=== PATIENT | female | born 2000 | race Two or more races ===

== ENCOUNTER 2024-07-22 09:50 | Outpatient (AMB) | payer OTHER, SELFPAY ==
--- NOTE | 2024-07-22 10:42 | MHC.PC.OV ---
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 Transferring care from Dr Valdovinos([facility]). Medical records have been requested and have received. Cooking Instructor Required: No In House Counsel: Not Required per policy Accompanied by: Self / Same As Patient Allergies No Known Allergies Allergy (Verified 07/25/24 22:55) Medication List - Last Reconciled 07/22/24 by Louisa Felder MD acetaminophen 2,000 mg PO Q6H PRN Tobacco use date assessed: 07/22/24 Dental Screening Dental Screen Date: 07/22/24 Did you have a dental visit in the last 12 months?: Yes Did you have a dental problem in the last 6 months where you did not have access to dental care?: No Was dental information given to patient?: Patient has dentist HPI BLEACHER PULP // Est Care HPI Details 24-year-old lady new to practice, here to establish care with a new provider after pediatrics. She has history of ventricular septal defect, had surgery at in at 1-year-old, has nonrheumatic mitral valve regurgitation, currently being followed by Dr. Jesse Louis at [facility] cardiology. She has generalized anxiety disorder, does not want to start any medications at present time, and declined therapy. 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 Complains of dysmenorrhea, at least a 1-2 days prior to her period . Has been taking Tylenol which has not been helping much. [facility] Medical History Generalized anxiety disorder Easy fatigability Intermittent palpitations Morbid obesity Dysmenorrhea Nonrheumatic mitral valve regurgitation History of ventricular septal defect Surgical History History of heart surgery History of tonsillectomy Family History Other Mental health disorder Social History Housing: House Alcohol intake: never Patient Tobacco Use Status: Never used Tobacco e-Cigarette/Vaping Use: Never Used Second Hand Smoke Exposure: No service: No Current occupational status: unemployed Cognitive needs: No Hearing needs: No Vision needs: Yes (Glasses) Female Reproductive History Menstrual Age of Menarche: 11 Duration of menses: 6-7 days Date of last menstrual period: 07/06/24 control method: none Questionnaire PHQ-9 Over the last 2 weeks, how often have you been bothered by any of the following problems? 1. Little interest or pleasure in doing things: several days 2. Feeling down, depressed, or hopeless: not at all 3. Trouble falling or staying asleep, or sleeping too much: several days 4. Feeling tired or having little energy: several days 5. Poor appetite or overeating: not at all 6. Feeling bad about yourself - or that you are a failure or have let yourself or your family down: several days 7. Trouble concentrating on things, such as reading the newspaper or watching television: not at all 8. Moving or speaking so slowly that other people could have noticed. Or the opposite - being so fidgety or restless that you have been moving around a lot more than usual: not at all 9. Thoughts that you would be better off or of hurting yourself in some way: not at all Total score: 4 Depression Screening Interpretation: Negative Depression Screening Done: Yes 38158 - PHQ-9 Billing: Yes Source: Developed by Drs. Mal Lee, Jil Bhatia, Guevara Cohen and colleagues, with an educational luis from [employer]. Thrive Questionnaire Date Thrive assessed: 07/22/24 I am a: Patient What is your living situation today?: I have a steady place to live Within the past 12 months, did the food you bought not last and you didn't have the money to get more?: Never true Within the past 12 months, did you worry whether your food would run out before you got money to buy more?: Never true Do you have trouble paying for medicines?: No Do you have trouble getting transportation to medical appointments?: No Do you have trouble paying your heating and electricity bill?: No Do you have trouble taking care of your child, family member or friend?: No Do you have trouble with day-to-day activities such as bathing, preparing meals, shopping, managing finances, etc.?: No Are you currently unemployed and looking for a job?: I choose not to answer this question Are you interested in more education?: No Please select the resources that you would like help with: None Currently or been in a relationship where the following occur: No concerns reported THRIVE Score: 0 AUDIT C Alcohol Use Questionnaire (AUDIT-C) 1. How often do you have a drink containing alcohol?: 2-4 times a month 2. How many drinks containing alcohol do you have on a typical day when you are drinking?: 1 or 2 3. How often do you have six or more drinks on one occasion?: Less than monthly Total Score: 3 CORBY-7 AMB Questionnaire CORBY-7 Date CORBY - 7 assessed: 07/22/24 Feeling nervous, anxious, or on edge: 2 = More than half the days Not being able to stop or control worryin = More than half the days Worrying too much about different things: 2 = More than half the days Trouble relaxin = More than half the days Being so restless that it is hard to sit still: 1 = Several days Becoming easily annoyed or irritable: 2 = More than half the days Feeling afraid as if something awful might happen: 1 = Several days Total CORBY-7 score (0-4 normal; 5-9 mild; 10-14 moderate; 15-21 severe): 12 Source: Developed by Drs. Mal Lee, Jil Bahtia, Guevara Cohen and colleagues, with an educational luis from [employer]. CORBY-7 Assessment Billing CORBY-7 Assessment Tool: CORBY-7 Assessment 21800 (declined medication or referral for therapy) Review of Systems Const Denies body aches, Denies fatigue, Denies fever(s), Denies headache(s) and Denies weakness Eyes Denies change in vision, Denies eye discharge and Denies itchy eyes ENT Denies dizziness, Denies headache(s), Denies nasal congestion, Denies nasal discharge and Denies sore throat Card Denies chest pain, Denies lightheadedness, Denies palpitations and Denies dyspnea Resp Denies chest congestion, Denies cough, Denies dyspnea and Denies wheezing GI Denies abdominal pain, Denies change in bowel habits and Denies heartburn Denies hematuria, Denies urinary frequency, Denies dysuria and Denies urinary urgency Musc Reports no additional complaints Skin/Breast Denies breast pain, Denies breast mass, Denies lesions and Denies rash Neuro Denies dizziness, Denies headache(s) and Denies weakness Psych Reports as per HPI Endo Denies fatigue, Denies polydipsia, Denies polyuria and Denies palpitations Zana/Lymph Denies easy bruising Aller/Immun Denies itchy eyes, Denies seasonal rhinorrhea and Denies wheezing Physical exam (Primary Care) Vital Signs: Last Vital Signs Pulse 105 H 07/22/24 10:55 BP 110/72 07/22/24 10:55 Pulse Ox 96 07/22/24 10:55 Oxygen Delivery Method Room Air 07/22/24 10:55 BMI result Body Mass Index 54.6 Tobacco/Smoking Status: Tobacco use Status Tobacco use date assessed 07/22/24 07/22/24 10:45 Patient Tobacco Use Status Never used Tobacco 07/22/24 10:45 e-Cigarette/Vaping Use Never Used 07/22/24 10:45 PHQ-9: PHQ-9 Score PHQ-9: Total score 4 07/22/24 11:35 Depression Screening Interpretation: Negative Thrive Assessment: Date of Thrive Assessment Date Thrive assessed 07/22/24 07/22/24 10:45 Currently or been in a relationship where the following occur: No concerns reported Const General: comfortable, no acute distress and alert Nutritional Appearance: obese morbidly obese Orientation/consciousness: patient oriented x3 HENMT Ears: external ears normal, TM's normal bilaterally and EAC's normal General nose exam: Normal external nose present and No nasal discharge present Face and sinus: Yes face symmetric Mouth: Normal oral and palatal mucosa present, oropharynx normal and moist mucous membranes Eyes General: appearance normal, both eyes and all related structures Conjunctivae: conjunctivae normal Sclerae: sclerae normal Pupils: Equal, round and reactive pupils present EOM: EOMs intact bilaterally Neck Neck: Yes full ROM, Yes no lymphadenopathy and Yes supple Resp Effort & Inspection: normal respiratory effort and able to speak in complete sentences Auscultation: clear to auscultation bilaterally Cardio Rate: regular rate Rhythm: regular rhythm Heart sounds: S1 normal heart sound present and S2 normal heart sound present GI Palpation (GI): Soft to palpation, nontender and no masses Auscultation: normal bowel sounds Back/Spine/Pelvis Back: No back tenderness Skin General skin exam: no rashes or lesions noted Neuro General: patient oriented x3, gait normal, tone normal, moves all extremities, Normal light touch and pain sensation and no focal motor deficits Cranial nerves: Yes CN's II-XII intact bilaterally and Yes Equal, round and reactive pupils present Cognition (Neuro): normal cognition Extrem General: Yes full ROM, Yes no joint enlargement, Yes no clubbing, cyanosis or edema and Yes no calf tenderness Psych Appearance: grossly normal and well kempt Mental Status: mental status grossly normal Speech and movement: Normal speech and movement present Affect: normal affect Attitude: cooperative Thought process: Normal thought process present Thought content: Normal thought content present, suicidality and no homicidality Office Procedures Flu Questionnaire Does the patient have a severe egg allergy?: No Does the patient have severe life threatening allergies?: No Does the patient have a fever or illness today?: No Has the patient ever had Guillain-Chester Syndrome?: No Has the patient ever had any past reaction to a flu shot?: No Immunizations Fluarix Triv [id number] (PF) 45 mcg (15 mcg x 3)/0.5 mL IM syringe Performing Provider: Louisa Felder MD [place] [facility] Administered by: Cesario Rod CMA on 07/22/24 11:33 Dose Route Admin Location Dispensed Lot Number Expiration Date [facility] Tank Cleaner 0.5 mL IM Right Deltoid 0.5 mL [id number] 04/04/25 [id number] [employer] VIS Given Date VIS Provided VIS Publication Date 07/22/24 Single Vaccine 21 Eligibility Eligibility Date Funding Source Not [facility] Eligible 07/22/24 Private Coding Level of Care Code New Pt Level 4 (91556) Complex EM visit Add On G2211 Diagnoses Dysmenorrhea N94.6 Nonrheumatic mitral valve regurgitation I34.0 Morbid obesity E66.01 Intermittent palpitations R00.2 Easy fatigability R53.83 Generalized anxiety disorder F41.1 Flu vaccine need Z23 Additional Codes CORBY-7 Assessment Billing - CORBY-7 Assessment Tool: CORBY-7 Assessment 80170 ([id number]) Assessment & Plan Assessment & Plan (1) Dysmenorrhea: Code(s): N94.6 - Dysmenorrhea, unspecified Category: Medical Plan: Prescription sent for naproxen 500 mg per tablet to take 1 tablet twice a day with meals as needed for dysmenorrhea, take medicine at onset of menstrual cramps, alternate with Tylenol 1-2 tablets every 8 hours as needed for pain. Referred to [address] for further evaluation management and for her routine Pap and pelvic exam (2) Nonrheumatic mitral valve regurgitation: Comment: Sees Dr. Jesse Louis cardiology at [facility] Code(s): I34.0 - Nonrheumatic mitral (valve) insufficiency Category: Medical Plan: Followed by cardiology at [facility] (3) Morbid obesity: Code(s): E66.01 - Morbid (severe) obesity due to excess calories Category: Medical Plan: Y Recommended focusing on improving health instead of dieting. Mediterranean diet is a healthy diet that helps, limit food high in fat, sugar, and calories. Eat slowly, pay attention to portion sizes, plan your meals ahead of time, start regular physical activity, at least 150 minutes of moderate intensity exercise, or 90 minutes per week of vigorous exercise. Keeping a food diary, tracking what you eat and your physical activity can help assess what improvements you can make. There are many health problems associated with being overweight/obese, so it is important to improve your diet and exercise. There are medications and surgical options available, but Lifestyle changes are the 1st step. (4) Intermittent palpitations: Code(s): R00.2 - Palpitations Category: Medical Plan: CBC and TSH with free T4 ordered (5) Easy fatigability: Code(s): R53.83 - Other fatigue Category: Medical Plan: Ordered CBC and TSH with free T4 (6) Generalized anxiety disorder: Code(s): F41.1 - Generalized anxiety disorder Category: Medical Plan: Declines referral for counseling or starting any medication at present time, patient has been controlling her anxiety attacks with behavioral techniques (7) Flu vaccine need: Code(s): Z23 - Encounter for immunization Plan: Flu vaccine given today Orders: Orders Alanine Aminotransferase 07/22/24 E66. - Morbid (severe) obesity due to excess calories, F41.1 - Generalized anxiety disorder, I34.0 - Nonrheumatic mitral (valve) insufficiency, N94.6 - Dysmenorrhea, unspecified, R00.2 - Palpitations, R53.83 - Other fatigue Aspartate Amino Transferase 07/22/24 E66. - Morbid (severe) obesity due to excess calories, F41.1 - Generalized anxiety disorder, I34.0 - Nonrheumatic mitral (valve) insufficiency, N94.6 - Dysmenorrhea, unspecified, R00.2 - Palpitations, R53.83 - Other fatigue Basic Metabolic Panel Fasting 07/22/246. - Morbid (severe) obesity due to excess calories, F41.1 - Generalized anxiety disorder, I34.0 - Nonrheumatic mitral (valve) insufficiency, N94.6 - Dysmenorrhea, unspecified, R00.2 - Palpitations, R53.83 - Other fatigue Lipid Panel 07/22/24 E66. - Morbid (severe) obesity due to excess calories, F41.1 - Generalized anxiety disorder, I34.0 - Nonrheumatic mitral (valve) insufficiency, N94.6 - Dysmenorrhea, unspecified, R00.2 - Palpitations, R53.83 - Other fatigue Vitamin D 25-OH Total 07/22/24 E66. - Morbid (severe) obesity due to excess calories, F41.1 - Generalized anxiety disorder, I34.0 - Nonrheumatic mitral (valve) insufficiency, N94.6 - Dysmenorrhea, unspecified, R00.2 - Palpitations, R53.83 - Other fatigue Influenza [id number] Immunization 07/22/24 Z23 - Encounter for immunization TSH reflex Free T4 07/22/24 E66. - Morbid (severe) obesity due to excess calories, F41.1 - Generalized anxiety disorder, I34.0 - Nonrheumatic mitral (valve) insufficiency, N94.6 - Dysmenorrhea, unspecified, R00.2 - Palpitations, R53.83 - Other fatigue Complete Blood Count Auto Diff 07/22/24 E66.01 - Morbid (severe) obesity due to excess calories, F41.1 - Generalized anxiety disorder, I34.0 - Nonrheumatic mitral (valve) insufficiency, N94.6 - Dysmenorrhea, unspecified, R00.2 - Palpitations, R53.83 - Other fatigue Referrals [facility] Referral N94.6 - Dysmenorrhea, unspecified, Z12.4 - Encounter for screening for malignant neoplasm of cervix Medications: New naproxen 500 mg PO BID PRN 30 tabs 1RF menstrual cramps
[2024-07-22 10:55] VITALS: BP 110/72; PULSE 105; O2SAT 96; BMI 54.6
== END 2024-07-22 15:40 | disposition home or self-care (01) ==
PROVIDERS: Visit Provider Internal Medicine
DX: N94.6 Dysmenorrhea, unspecified (principal); I34.0 Nonrheumatic mitral (valve) insufficiency; E66.813 Obesity, class 3; Z68.43 Body mass index [BMI] 50.0-59.9, adult; R00.2 Palpitations; R53.83 Other fatigue; F41.1 Generalized anxiety disorder

== ENCOUNTER → 2024-07-22 09:50 | Outpatient (BNVA) | payer OTHER, SELFPAY | PROVIDERS: Visit Provider Internal Medicine ==

== ENCOUNTER 2024-07-22 11:37 | Outpatient (REF) | payer OTHER, SELFPAY ==
[2024-07-22 13:19] LABS: MANUAL DIFF FLAG NO
[2024-07-22 13:36] LABS: Basophils Percent Auto 0.3 % (0-2); Eosinophils Absolute Auto 0.1 X10*3/uL (0.0-0.4); Eosinophils Percent Auto 0.9 % (0-4); Hematocrit 40.9 % (37.0-47.0); Imm Gran Abs Auto 0.04 X10*3/uL (0.00-0.03); Imm Gran Pct Auto 0.4 % (0.0-0.4); Lymphocytes Absolute Auto 1.3 X10*3/uL (1.2-4.9); Mean Corpuscular HGB Conc 29.3 g/dl (31.0-35.0); Mean Corpuscular Hemoglobin 21.5 pg (27.0-33.0); Mean Corpuscular Volume 73.3 fL (80.0-98.0); Mean Platelet Volume 10.6 fL (9.4-12.3); Monocytes Absolute Auto 0.5 X10*3/uL (0.1-1.2); Neutrophils Absolute Auto 7.9 x10*3/uL (2.0-8.3); Neutrophils Percent Auto 80.4 % (45-73); Platelet Count 323 X10*3/uL (160-400); Red Blood Count 5.58 X10*6/uL (4.20-5.50); Red Cell Distribution Width 17.2 % (11.0-16.0); White Blood Count 9.8 X10*3/uL (4.8-10.8)
[2024-07-22 14:07] LABS: Alanine Aminotransferase 18 U/L (0-31); Anion Gap 13 (12-20); Aspartate Amino Transferase 17 U/L (5-31); Blood Urea Nitrogen 14 mg/dL (9-16); Calcium 9.6 mg/dL (8.4-10.2); Carbon Dioxide 21 mmol/L (22-29); Chloride 109 mmol/L (96-108); Cholesterol 167 mg/dL (<200); Estimated Glomerular Filt Rate > 60; Glucose Fasting 99 mg/dL (60-99); HDL Cholesterol 53 mg/dL (>40); LDL Cholesterol Calculated 101 mg/dL (<100); Potassium 4.6 mmol/L (3.3-5.1); Sodium 138 mmol/L (135-145); Triglycerides 67 mg/dL (<150)
[2024-07-22 14:22] LABS: TSH reflex Free T4 1.48 uIU/mL (0.32-4.0); Vitamin D 25-OH Total 12.4 ng/mL (>30)
== END 2024-07-22 11:38 | disposition home or self-care (01) ==
LOC: HO.HMGCLDS 11:37
PROVIDERS: PCP Internal Medicine; Visit Provider Internal Medicine
DX: N94.6 Dysmenorrhea, unspecified (principal); I34.0 Nonrheumatic mitral (valve) insufficiency; E66.01 Morbid (severe) obesity due to excess calories; Z68.43 Body mass index [BMI] 50.0-59.9, adult; R00.2 Palpitations; R53.83 Other fatigue; F41.1 Generalized anxiety disorder; Z23 Encounter for immunization
CPT/HCPCS: 36415; 80048; 80061; 82306; 84443; 84450; 84460; 85025; 90471; 90656; 96127; 99202

== ENCOUNTER 2024-11-25 12:34 | Outpatient (AMB) | payer OTHER, SELFPAY ==
[2024-11-25 12:36] VITALS: BP 120/90; PULSE 88; TEMP 36.9; O2SAT 95; BMI 53.1
--- NOTE | 2024-11-25 12:36 | A.OFFPC_ITS ---
Vital Signs 11/25/24 12:36 Height 4 ft 11 in Weight 263 lb BMI 53.1 BP 120/90 H Blood Pressure Location Rt brachial Position Sitting Pulse 88 Pulse Source Pulse Oximeter Temp 98.5 F Temp Source Oral Pulse Oximetry (%) 95 Oxygen Delivery Method Room Air Intake Visit Reasons: ED f/u Intake Note: Pt is here today to f/u for SOB Allergies No Known Allergies Allergy (Verified 11/28/24 16:21) Medication List - Last Reconciled 11/28/24 by Louisa Felder MD acetaminophen 2,000 mg PO Q6H PRN albuterol sulfate 90 mcg/actuation (Ventolin HFA) inhalation ferrous sulfate mg PO Q OTHER DAY naproxen 500 mg PO BID PRN Tobacco use date assessed: 11/25/24 Dental Screening Dental Screen Date: 11/25/24 Did you have a dental visit in the last 12 months?: Yes Did you have a dental problem in the last 6 months where you did not have access to dental care?: No Was dental information given to patient?: Patient has dentist HPI ED f/u HPI Details 24-year-old lady with history of ventri cular septal defects , 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 Patient was discharged on albuterol inhaler, which she states she has not really been needing to use anymore. At present patient states that she has been feeling better, with no complaints of shortness of breath or cough. Has not been needing to use her albuterol inhaler . During her admission she was noted to have iron-deficiency anemia with hemoglobin hematocrit at 11.2/38, and iron level at 23. She was started on iron supplements. Denies any unusual bleeding. [facility] Medical History (Updated 11/28/24 @ 16:32 by Louisa Felder MD) Congenital heart disease Iron deficiency anemia Generalized anxiety disorder Easy fatigability Intermittent palpitations Morbid obesity Dysmenorrhea Nonrheumatic mitral valve regurgitation History of ventricular septal defect Surgical History History of heart surgery History of tonsillectomy Family History Other Mental health disorder Social History Housing: House Alcohol intake: never Patient Tobacco Use Status: Never used Tobacco e-Cigarette/Vaping Use: Never Used Second Hand Smoke Exposure: No service: No Current occupational status: employed Cognitive needs: No Hearing needs: No Vision needs: Yes (Glasses) Female Reproductive History Menstrual Age of Menarche: 11 Questionnaire PHQ-9 Over the last 2 weeks, how often have you been bothered by any of the following problems? 1. Little interest or pleasure in doing things: not at all 2. Feeling down, depressed, or hopeless: not at all 3. Trouble falling or staying asleep, or sleeping too much: not at all 4. Feeling tired or having little energy: not at all 5. Poor appetite or overeating: not at all 6. Feeling bad about yourself - or that you are a failure or have let yourself or your family down: not at all 7. Trouble concentrating on things, such as reading the newspaper or watching television: not at all 8. Moving or speaking so slowly that other people could have noticed. Or the opposite - being so fidgety or restless that you have been moving around a lot more than usual: not at all 9. Thoughts that you would be better off or of hurting yourself in some way: not at all Total score: 0 Depression Screening Interpretation: Negative Depression Screening Done: Yes 58993 - PHQ-9 Billing: Yes Source: Developed by Drs. Mal Lee, Jil Bhatia, Guevara Cohen and colleagues, with an educational luis from [employer]. Thrive Questionnaire Date Thrive assessed: 11/25/24 I am a: Patient What is your living situation today?: I have a steady place to live Within the past 12 months, did the food you bought not last and you didn't have the money to get more?: Never true Within the past 12 months, did you worry whether your food would run out before you got money to buy more?: Never true Do you have trouble paying for medicines?: No Do you have trouble getting transportation to medical appointments?: No Do you have trouble paying your heating and electricity bill?: No Do you have trouble taking care of your child, family member or friend?: No Do you have trouble with day-to-day activities such as bathing, preparing meals, shopping, managing finances, etc.?: No Are you currently unemployed and looking for a job?: I choose not to answer this question Are you interested in more education?: No Please select the resources that you would like help with: None Currently or been in a relationship where the following occur: No concerns reported THRIVE Score: 0 AUDIT C Alcohol Use Questionnaire (AUDIT-C) 2. How many drinks containing alcohol do you have on a typical day when you are drinking?: 1 or 2 3. How often do you have six or more drinks on one occasion?: Never Total Score: 0 CORBY-7 AMB Questionnaire CORBY-7 Date CORBY - 7 assessed: 07/22/24 Source: Developed by Drs. Mal Lee, Jil Bhatia, Guevara Cohen and colleagues, with an educational luis from [employer]. Review of Systems Const Denies body aches, Denies fatigue, Denies fever(s), Denies headache(s) and Denies weakness Eyes Denies change in vision ENT Denies dizziness, Denies headache(s), Denies nasal congestion, Denies nasal discharge and Denies sore throat Card Denies chest pain, Denies lightheadedness, Denies palpitations and Denies dyspnea Resp Denies chest congestion, Denies cough, Denies dyspnea and Denies wheezing GI Denies abdominal pain, Denies change in bowel habits and Denies heartburn Denies hematuria, Denies urinary frequency, Denies dysuria and Denies urinary urgency Musc Reports no additional complaints Neuro Denies dizziness, Denies headache(s) and Denies weakness Endo Denies fatigue, Denies polydipsia, Denies polyuria and Denies palpitations Zana/Lymph Denies easy bruising Aller/Immun Denies seasonal rhinorrhea and Denies wheezing Physical exam (Primary Care) Vital Signs: Last Vital Signs Temp 98.5 F 11/25/24 12:36 Pulse 88 11/25/24 12:36 BP 120/90 H 11/25/24 12:36 Pulse Ox 95 11/25/24 12:36 Oxygen Delivery Method Room Air 11/25/24 12:36 BMI result Body Mass Index 53.1 Tobacco/Smoking Status: Tobacco use Status Tobacco use date assessed 11/25/24 11/25/24 12:39 Patient Tobacco Use Status Never used Tobacco 11/25/24 12:37 e-Cigarette/Vaping Use Never Used 11/25/24 12:37 PHQ-9: PHQ-9 Score PHQ-9: Total score 0 11/25/24 13:08 Depression Screening Interpretation: Negative Thrive Assessment: Date of Thrive Assessment Date Thrive assessed 11/25/24 11/25/24 12:37 Currently or been in a relationship where the following occur: No concerns reported Const General: comfortable, no acute distress and alert Nutritional Appearance: obese morbidly obese Orientation/consciousness: patient oriented x3 HENMT Ears: external ears normal, TM's normal bilaterally and EAC's normal General nose exam: Normal external nose present and No nasal discharge present Face and sinus: Yes face symmetric Mouth: Normal oral and palatal mucosa present, oropharynx normal and moist mucous membranes Eyes General: appearance normal, both eyes and all related structures Conjunctivae: conjunctivae normal Sclerae: sclerae normal Pupils: Equal, round and reactive pupils present EOM: EOMs intact bilaterally Neck Other: Short neck Neck: Yes full ROM, Yes no lymphadenopathy and Yes supple Resp Effort & Inspection: normal respiratory effort and able to speak in complete se ntences Auscultation: clear to auscultation bilaterally Cardio Rate: regular rate Rhythm: regular rhythm Heart sounds: S1 normal heart sound present and S2 normal heart sound present GI Palpation (GI): Soft to palpation, nontender and no masses Auscultation: normal bowel sounds Back/Spine/Pelvis Back: No back tenderness Skin General skin exam: no rashes or lesions noted Neuro General: patient oriented x3, gait normal, tone normal, moves all extremities, N ormal light touch and pain sensation and no focal motor deficits Cranial nerves: Yes CN's II-XII intact bilaterally and Yes Equal, round and reactive pupils present Cognition (Neuro): normal cognition Extrem General: Yes full ROM, Yes no joint enlargement, Yes no clubbing, cyanosis or edema and Yes no calf tenderness Psych Appearance: grossly normal and well kempt Mental Status: mental status grossly normal Speech and movement: Normal speech and movement present Affect: normal affect Attitude: cooperative Thought process: Normal thought process present Thought content: Normal thought content present Coding Level of Care Code Est Pt Level 4 (14284) Diagnoses Iron deficiency anemia, unspecified iron deficiency anemia type D50.9 Iron deficiency anemia type: unspecified iron deficiency History of RSV infection Z86.19 Congenital heart disease Q24.9 Additional Codes PHQ-9 - 59026 - PHQ-9 Billing: Yes ([id number]) Assessment & Plan Assessment & Plan (1) Iron deficiency anemia: Code(s): D50.9 - Iron deficiency anemia, unspecified Category: Medical Qualifiers: Iron deficiency anemia type: unspecified iron deficiency Qualified Code(s): D50.9 - Iron deficiency anemia, unspecified Plan: Continue taking ferrous sulfate 325 mg taken 1 tablet every other day. Repeat CBC and iron profile in 3 months, lab ordered (2) History of RSV infection: Code(s): Z86.19 - Personal history of other infectious and parasitic diseases Category: Medical Plan: Feeling better, no complaints of any cough or wheezing , rarely needing to use her albuterol inhaler (3) Congenital heart disease: Code(s): Q24.9 - Congenital malformation of heart, unspecified Category: Medical Plan: Currently followed by [facility] cardiology, patient states she already scheduled an appointment Orders: Orders Complete Blood Count Auto Diff 3 Months D50.9 - Iron deficiency anemia, unspecified IRON PROFILE 3 Months D50.9 - Iron deficiency anemia, unspecified
--- OUTSIDE RECORDS SUMMARY | 2024-11-25 13:28 | XMS_ITS | Continuity of Care Document ---
Author Organization [facility] Address [address] [place] [id number] Care Team Providers Care Contact And Service Clerks Supervisor Name Role Phone Aruna DUPREE, Masoud Ford Primary Care Physician Encounter [facility] [place] Date(s): 10/13/24 - 11/12/24 [facility] [address] [place] [id number] Encounter Type: Triage Allergies, Adverse Reactions, Alerts No Known Allergies Medications ferrous sulfate 325 mg oral enteric coated tablet 325 mg, By Mouth, Every other day, If experiencing constipation try OTC laxative and stool softener, # 30 capsule, Refills 2, Tot. Refills 2, Maintenance, 10/27/24 1:07:00 PM EST, Route to Pharmacy Electronically, [facility], Partial fill upon patient request if the prescription is fora schedule II opioid drug., 150, cm, 10/27/24 8:32:00 EST, Height, 118, kg, 10/25/24 20:23:00 EST, Dry Weight Start Date: 10/27/24 Status: Ordered Quantity: 30.0 Unit: capsule Repeat number: 3 Flonase Allergy Relief 50 mcg/inh nasal spray 1 sprays = 50 mcg, Nares, Both, 2 times a day, Maintenance, 10/25/24 4:20:00 PM EST, Partial fill upon patient request if the prescription is for a schedule II opioid drug. Start Date: 10/25/24 Status: Ordered Repeat number: 1 MiraLax oral powder for reconstitution = 17 Gm, By Mouth, Daily, dissolve in 4 to 8 oz of beverage, # 510 Gm, 0 Refills, Acute 10/27/25 1:17:00 PM EST, 10/27/24 1:16:00 PM EST, REC Powder, [facility], Partial fill upon patientrequest if the prescription is for a schedule II opioid drug., 17 Gm By Mouth Daily,Instr:dissolve in 4 to 8 oz of beverage, 150, cm, 10/27/24 8:32:00 EST, Height, 118, kg, 10/25/24 20:23:00 EST, DryWeight Start Date: 10/27/24 Stop Date: 10/27/25 Status: Ordered Quantity: 510.0 Unit: g Repeat number: 1 naproxen 500 mg oral tablet 1 tablet = 500 mg, By Mouth, 2 times a day, PRN Cramps, Maintenance, 10/25/24 4:21:00 PM EST, Partial fill upon patient request if the prescription is for a schedule II opioid drug. Start Date: 10/25/24 Status: Ordered Repeat number: 1 senna 187 mg oral tablet 1 tablet = 8.6 mg, By Mouth, 2 times a day, PRN Constipation, for 30 days, # 60 tablet, 0 Refills, Acute 11/26/24 1:16:00 PM EST, 10/27/24 1:16:00 PM EST, Tablet, [facility], Partial fillupon patient request if the prescription is for a schedule II opioid drug., 150, cm, 10/27/24 8:32:00 EST, Height, 118, kg, 10/25/24 20:23:00 EST, Dry Weight Start Date: 10/27/24 Stop Date: 11/26/24 Status: Ordered Quantity: 60.0 Unit: tablet Repeat number: 1 Ventolin 90 mcg Inhaler 2, puffs, Inhalation, Every 4 hours, PRN, Maintenance, 10/25/24 4:20:00 PM EST Start Date: 10/25/24 Status: Ordered Repeat number: 1 Problem List Condition Confirmation Course Effective Dates Status Health St atus Informant Coarctation Confirmed Stable Active Complex sleep apnea syndrome Confirmed Active Obstructive sleep apnea hypopnea, severe Confirmed Active Severe obesity Confirmed Active VSD - Closure of ventricular septal defect Confirmed Active Social History Social History Type Response Smoking Status Never (less than 100 in lifetime) entered on: 10/25/24 Sex Sex Representation Female (finding) Patient Care team information Care Team Personnel Name: Masoud Valdovinos MD Position: [facility] Physician - Pediatrics Member Role: PCP Address: [address] [place] [address] Telecom: Name: Yary Simms MD Position: [facility] Physician - Pediatrics Member Role: [employer] Consult[employer] Physician Care Team Related Persons Name: SARAN LEO Name: RAVEN GIBSON Name: RAVEN ALONSO Insurance Providers Guarantor name: BAKARI Health Plan Information #: 1 Payer: [employer] Member Number: NA Policy Number: NA Group Number: NA
--- OUTSIDE RECORDS SUMMARY | 2024-11-25 13:28 | XMS_ITS | Continuity of Care Document ---
Author Organization [facility] Address [address] [place] [id number] Care Team Providers Care Public Health Worker Name Role Phone Bradford DUPREE, Louisa Farrar Primary Care Phys[id number] Date(s[facility] 10/25/24 - 10/27/[address] [address] Discharge Disposition: A-D/C Home Attending Physician: Gurinder Valentine MD Admitting Physician: Obi Talamantes MD Referring Physician: Not on Staff, Referring MD Encounter Type: Disch IP Allergies, Adverse Reactions, Alerts No Known Allergies Medications ferrous sulfate 325 mg oral enteric coated tablet 325 mg, By Mouth, Every other day, If experiencing constipation try OTC laxative and stool softener, # 30 capsule, Refills 2, Tot. Refills 2, Maintenance, 10/27/24 1:07:00 PM EST, Route to Pharmacy Electronically, [facility], Partial fill upon patient [...] EST, 10/27/24 1:16:00 PM EST, REC Powder, [facility], Partial fill upon patientrequest [...] PM EST, 10/27/24 1:16:00 PM EST, Tablet, [facility], Partial fillupon patient request if the [...] Closure of ventricular septal defect Confirmed Active Results Radiology Reports * Exam Date Time Procedure Performing Provider Status 10/25/24 12:27 PM Chest 2 Views Frontal and Lat Lizett Quinones; Susan (Verified) Notes: (Chest 2 Views Frontal and Lat) Reason For Exam: Chest Pain;Other: RESULT: Chest 2 Views Frontal and Lat PA and lateral chest x-ray dated October 25, 2024. No prior studies are available. HISTORY: Chest pain. FINDINGS: The cardiac silhouette is at the upper limits of normal for size. There are 2 metallic artifact noted overlying the heart. These could represent ventricular septal closure devices. Mild pulmonary vascular congestion and some interstitial thickening is noted bilaterally. No airspace consolidation or pleural effusion is appreciated. There is evidence of old healed fifth and sixth rib fractures. IMPRESSION: Findings are consistent with a volume overload/mild congestive heart failure pattern. Examination 88880. Thank you for allowing me to participate in the care of this patient. WSN: [id number] Ordering Physician: Fabián Rand Dictated By: Victor Hugo Stafford MD Dictated Date/Time: 10/25/24 12:33 p Reviewed By: Victor Hugo Stafford MD Signed By: Victor Hugo Stafford MD Signed Date/Time: 10/25/24 12:33 pm Transcribed By: ARELI Transcribed Date/Time: 10/25/24 12:33 pm Vital Signs Most recent to oldest [Reference Range]: 1 2 3 Height 150 cm (10/27/24 8:32 AM) 150 cm (10/27/24 1:21 AM) 150 cm (10/26/24 7:50 PM) Weight 119.8 kg (10/27/24 5:15 AM) 119.4 kg (10/26/24 5:48 AM) 119.4 kg (10/25/24 8:58 PM) Oxygen Saturation [94-100 %] 96 % (10/27/24 8:32 AM) 94 % (10/27/24 1:21 AM) 92 % *L* (10/26/24 7:50 PM) Pulse Rate [55-90 bpm] 93 bpm *H* (10/27/24 8:32 AM) 85 bpm (10/27/24 1:21 AM) 87 bpm (10/26/24 7:50 PM) Body Mass Index [18.5-24.99 kg/m2] 53.07 kg/m2 *>HHI* (10/25/24 8:58 PM) 53.07 kg/m2 *>HHI* (10/25/24 7:45 PM) 52.44 kg/m2 *>HHI* (10/25/24 11:21 AM) Blood Pressure [90-138/55-84 mm Hg] 135/108mm Hg (10/27/24 8:32 AM) 135/102mm Hg (10/27/24 1:21 AM) 137/100mm Hg (10/26/24 7:50 PM) Respiratory Rate [16-30 br/min] 20 br/min (10/27/24 8:32 AM) 20 br/min (10/27/24 1:21 AM) 24 br/min (10/26/24 7:50 PM) Temperature [96.8-100.4 DegF] 98.1 DegF (10/27/24 8:32 AM) 97.5 DegF (10/27/24 1:21 AM) 97.8 DegF (10/26/24 7:50 PM) Mode of Delivery (Oxygen) Room air (10/27/24 8:32 AM) Room air (10/27/24 1:21 AM) Room air (10/26/24 7:50 PM) Blood pressure sites Arm, left (10/27/24 8:32 AM) Arm, left (10/27/24 1:21 AM) Arm, left (10/26/24 7:50 PM) Temperature Route Oral (10/27/24 8:32 AM) Temporal (10/27/24 1:21 AM) Temporal (10/26/24 7:50 PM) Dry Weight 118 kg (10/25/24 7:45 PM) 118 kg (10/25/24 11:21 AM) Weight Obtained Via Bed scale (10/27/24 5:15 AM) Bed scale (10/26/24 5:48 AM) Bed scale (10/25/24 8:58 PM) Dry Weight Obtained Via Patient/family stated (10/25/24 11:21 AM) Social History Social History Type Response Smoking Status Never (less than 100 in lifetime) entered on: 10/25/24 Sex Sex Representation Female (finding) Admission evaluation note * Trent Arias MD: MODIFY Trent Arias MD: MODIFY Event Display: Admission Note Authored Date: [id number] Patient: ??KUSHAL LIN ? Age:??24 Years?Sex:??Female?:??2000?? 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 ?? Kushal reports cough that started 4 days ago. The cough is described as dry without phlegm production or associated fevers. Afterwards, she developed dyspnea that is mainly on exertion and when lying flat. Se also reports??sore throat??and rhinorrhea.??She denied any fevers, chills or rigors. She also had diarrhea without abdominal pain. ??She did develop??some pleuritic chest pain because of the recurrent coughing that was localized to the right side of the chest. ??She went to urgent care yesterday and she was told that she has an enlarged heart??and was started on prednisone and doxycycline. ??She last saw her senior data quality analyst last year and has an appointment next December.? Upon initial evaluation, she was noted to be hypertensive up to 150s/100.?? Heart rate was 90.??She was afebrile and saturating well on room air.?? EKG revealed repolarization abnormality with severe TWI and PAC. Laboratory workup revealed a microcytic anemia on the CBC without leukocytosis.?? BMP was unremarkable.?? NT proBNP was elevated up to 3000.?? She tested positive for RSV.?? Chest x-ray revealed cardiomegaly with reticular interstitial markings bilaterally. Review of Systems General:??Denies fevers, chills, and recent unintentional??changes in weight. Cardiovascular:??Denies any chest pain or palpitations. Pulmonary:??She endorses??shortness of breath and cough. GI:??Denies any abdominal pain, nausea, vomiting, diarrhea or constipation. :??Denies any urinary frequency,??urgency??and dysuria. Objective Vital Signs?? Temperature: 98.4 DegF (10/25/24 11:21:00) Temperature Route: Oral (10/25/24 11:21:00) Pulse Rate:??91 bpm??High (10/25/24:21:00) Respiratory Rate: 18 br/min (10/25/24:21:) Systolic Blood Pressure:??151 mm Hg??High (10/25/24 11:21:00) Diastolic Blood Pressure:??102 mm Hg??High (10/25/24 11:21:00) Blood pressure sites: Arm, left (10/25/24 11:21:00) Mean Arterial Pressure: 118 mm Hg (10/25/24 11:21:00) Pulse Pressure: 49 mm Hg (10/25/24 11:21:00) Oxygen Saturation: 95 % (10/25/24:21:00) Mode of Delivery (Oxygen): Room air (10/25/24:21:00) ? Intake/Output? No Data Available ? Physical Exam General: No acute distress, appropriate for age. Cardio: Regular rate and rhythm, normal S1 and S2, no murmurs appreciated. Respiratory: Bibasilar crackles and mild expiratory wheeze GI: Soft, non tender, non distended. Bowel sounds present present in 4 quadrants. MSK: normal gait observed. Extremities: 1+ pedal edema Neuro: Grossly intact. Psych: Grossly appropriate. 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 She was found to be positive for RSV and slightly??volume overloaded.? RSV (respiratory syncytial virus infection) (B33.8):??Currently on room air. Supportive care with albuterol, flonase, anti histamine,??lozenges and tylenol.? 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 Patient has LVH on prior echo. Presented with orthopnea and PNDS. 1+ pedal edema and mildpulmonary edema.?? Suspect mild??exacerbation due to RSV infection. However, given her extensive??congenital heart disease history, care should be taken with aggressive diuresis.?However, at this point??I will not aggressively diurese her??given she is not hypoxic??and not??frankly overloaded.??Her elevated proBNP can be in the setting of her??underlying??left atrial dilatation. I suspect she would benefit from a cardiac MRI to evaluate EF and a RHC for complete Pulmonary hypertension eval.? Plan Echo Please consult cardiology consult??in the morning Tele I&O monitoring ?? Hypertension (I10):??Will defer agent selection to cardiology's expertise ?? Asthma (J45.909):??Childhood asthma.??Minimal wheezing on exam. Not on home controller therapy.? Hypochromic-microcytic anemia (D50.9):??No report of jass??hemorrhage.??Will obtain anemia work up.? Quality Metrics: Diet: Cardiac DVT/VTE Prophylaxis: Lovenox 40 mg bid due to weight CODE STATUS: Full ?? Patient's case and plan discussed with attending physician .??Juana Wood MD Internal Medicine PGY-3? Addendum to the above note performed by Dr. Trent Arias: Patient personally seen and examined before?? midnight. Agree with history and physical examination, assessment and plan as outlined above by Dr. Cecil Wood Histories Allergies Allergies ?(Active and Proposed Allergies Only) NKA? (Severity: Unknown severity, Onset: Unknown) ? Social History Tobacco Details:??Never smoker, Tobacco user in household: No. ? Family History No Family History Of congenital heart disease ? Medications Home Medications Albuterol (Ventolin 90 mcg Inhaler)?2?puff(s)?Inhalation?Every 4 hours?as needed?Wheezing/Shortness of Breath Doxycycline (doxycycline hyclate 100 mg oral capsule)?1?capsule?100?Milligram?By Mouth?2 times a day?for 7?Days Fluticasone Nasal (Flonase Allergy Relief 50 mcg/inh nasal spray)?1?spray(s)?50?Microgram?Nares, Both?2 times a day Naproxen (naproxen 500 mg oral tablet)?1?tab(s)?500?Milligram?By Mouth?2 times a day?as needed?Cramps PredniSONE (predniSONE 10 mg oral tablet)?6?tab(s)?60?Milligram?By Mouth?Daily?for 2 days then 5 tabs daily for 2 days, 4 tabs daily for 2 days, 3 tabs daily for 2 days, 2 tabs daily for 2 days then 1 tab daily for 2 days. ? Inpatient Medications Medications (13) Active SCHEDULED: (3) Fluticasone Propionate 50mcg/inh Nasal Neal (fluticasone 50 mcg/inh nasal spray) ??100 mcg 2 sprays, Nares, Both, Daily Loratadine 10 mg Tablet (loratadine 10 mg oral tablet) ??10 mg, By Mouth, Daily NaCl 0.9% Flush 3ml (NaCL 0.9% Flush) ??3 mL, IV Push, Every 8 hours CONTINUOUS: (0) PRN: (10) Acetaminophen 325 mg Tablet (Acetaminophen Tablet) ??650 mg, By Mouth, Every 6 hours Albuterol 0.083% Inhalation Solution (Albuterol 0.083% inhalation nusrat) ??2.5 mg 3 mL, BAND Nebulizer, Every 4 hours Chloraseptic Lozenge ??1 lozenge, By Mouth, Every 3 hours Dextromethorphan-Guaifenesin 20 mg-200 mg/10 mL Liqu UD (Robitussin DM Liquid) ??10 mL, By Mouth, Every 4 hours Docusate Sodium 100 mg Capsule (Docusate Sodium Capsule) ??100 mg 1 capsule, By Mouth, 2 times a day Melatonin 3 mg Tablet (Melatonin Tablet) ??3 mg, By Mouth, Daily at bedtime NaCl 0.9% Flush 3ml (NaCL 0.9% Flush) ??3 mL, IV Push, Every 8 hours Polyethylene Glycol 17 Gm Powder (MiraLax Powder) ??17 Gm 1 pack/packet, By Mouth, Daily Senna Tablet ??8.6 mg 1 tablet, By Mouth, 2 times a day Simethicone 80 mg Chewable Tablet (Simethicone Tablet) ??80 mg, Chew, 3 times a day ? Results Recent Labs BLOOD COUNT & DIFF WBC 9.6 k/mm3 ()?? 10/25/2024 12:35 RBC 5.15 m/mm3 ()?? 10/25/2024 12:35 Hgb 11.2 Gm/dL (Low)?? 10/25/2024 12:35 Hct 38.0 % ()?? 10/25/2024 12:35 MCV 73.8 femtoliters (Low)?? 10/25/2024 12:35 MCH 21.7 pg (Low)?? 10/25/2024 12:35 MCHC 29.5 Gm/dL (Low)?? 10/25/2024 12:35 Platelet Count 271 k/mm3 ()?? 10/25/2024 12:35 RDW-SD 45.8 femtoliters ()?? 10/25/2024 12:35 MPV 9.7 femtoliters ()?? 10/25/2024 12:35 Nucleated RBC (Automated) 0.0 #/100 WBC'S ()?? 10/25/2024 12:35 Abs. NRBC 0.0 k/mm3 ()?? 10/25/2024 12:35 Abs. Neut 8.3 k/mm3 (High)?? 10/25/2024 12:35 Abs. Lymph 0.6 k/mm3 (Low)?? 10/25/2024 12:35 Abs. [place] 0.5 k/mm3 ()?? 10/25/2024 12:35 Abs. Eo 0.1 k/mm3 ()?? 10/25/2024 12:35 Abs. Baso 0.0 k/mm3 ()?? 10/25/2024 12:35 Neut % 86.6 % (High)?? 10/25/2024 12:35 Lymph % 6.7 % (Low)?? 10/25/2024 12:35 [place] % 5.4 % ()?? 10/25/2024 12:35 Eos % 0.7 % ()?? 10/25/2024 12:35 Baso % 0.2 % ()?? 10/25/2024 12:35 Imm Gran 0.4 % ()?? 10/25/2024 12:35 Abs. Imm Gran 0.0 k/mm3 ()?? 10/25/2024 12:35 ?? CARDIAC Nt-Probnp 2962 pg/mL (High)?? 10/25/2024 11:19 High Sensitivity Troponin (HSTnT) 11 ng/L ()?? 10/25/2024 14:04 ?? CHEM GENERAL Sodium 140 mmol/L ()?? 10/25/2024 11:19 Potassium 4.4 mmol/L ()?? 10/25/2024 11:19 Chloride 104 mmol/L ()?? 10/25/2024 11:19 Bicarbonate Level 22 mmol/L ()?? 10/25/2024 11:19 Anion Gap 14 ()?? 10/25/2024 11:19 Glucose Level 155 mg/dL (High)?? 10/25/2024 11:19 BUN 7 mg/dL ()?? 10/25/2024 11:19 Creatinine-Blood 0.75 mg/dL ()?? 10/25/2024 11:19 Estimated GFR Creatinine 114 ML/MIN/1.73 M2 ()?? 10/25/2024 11:19 Calcium 8.8 mg/dL ()?? 10/25/2024 11:19 ?? HEME OTHER Hold Blue Top SPECIMEN DISCARDED AFTER 4 HOURS. ()?? 10/25/2024 12:35 ?? URINE OTHER Est Creatinine Clearance 79.11 mL/min ()?? 10/25/2024 13:18 ?? VIROLOGY Influenza A PCR NEGATIVE ()?? 10/25/2024 14:06 Influenza B PCR NEGATIVE ()?? 10/25/2024 14:06 RSV PCR POSITIVE (Abnormal)?? 10/25/2024 14:06 COVID-19 PCR Specimen Source NASAL ()?? 10/25/2024 14:06 COVID-19 PCR Result NEGATIVE ()?? 10/25/2024 14:06 ? EKG study * Event Display: ECG 12-Lead Authored Date: Please click on pdf link to open report * Event Display: ECG 12-Lead Authored Date: Ventricular Rate: 98 BPM Atrial Rate: 98 BPM P-R Interval: 146 ms QRS Duration: 100 ms Q-T Interval: 370 ms QTC Calculation(Bazett): 472 ms P [place]: 28 degrees R [place]: 64 degrees T [place]: 267 degrees Sinus rhythm with Premature atrial complexes with Aberrant conduction RSR' or QR pattern in V1 suggests right ventricular conduction delay ST and T wave abnormality, consider inferior ischemia ST and T wave abnormality, consider anterolateral ischemia Abnormal ECG When compared with ECG of 08-Oct-2023 15:05, Premature atrial complexes are now Present T wave inversion more evident in Anterior leads Confirmed by Timi Pino ([id number]) on 10/25/2024 12:43:39 PM [place]: Timi Pino Heart * Event Display: Echocardiogram - Complete Authored Date: Transthoracic Echocardiography Report (TTE) Patient Demographics Patient Name KUSHAL LIN Date of Study 10/27/2024 Corporate Gender Female Facility Race .[id number] Ethnicity Date of 2000 Height: 58.66 inches Age 24 year(s) Weight: 264.57 pounds Accession Number [id number] BSA: 2.07 m2 Room Number [id number] BMI: 54.05 kg/m2 Referring Israel Almonte MD Interpreting All Romo MD Physician Physician Team Primary Care Physician Colin Kessler Indications Congenital heart disease. Clinical History bicommissural aortic valve parachute mitral valve s/p end-to-end anastomosis of aortic coarctation s/p two 17mm CardioSEAL devices to close the VSD's morbid obesity Study Data Type of Study TTE procedure:Echo 2D Congen w Doppler & Colorflow with contrast. Procedure Information:Definity was administered by Analytical Chemistry Teacher . Study Date10/27/2024 Start Time: 11:07 AM Study Location: [facility] [place] Adult Echo Study Status: Bedside Patient Status: Routine Blood Pressure:135/102 mmHg EKG: Sinus with ectopy HR: 84 bpm Contrast Medium: Definity. Amount - 2 ml 2D Measurements LV Diastolic Dimension: 5 cm LV Systolic Dimension: 3.8 cm LV Septum Diastolic: 1.3 cm LV PW Diastolic: 1.1 cm AO Root Dimension: 2.8 cm LA ESV (BP):77.2 ml LVOT Stroke Volume: 60.41 ml LA ESV Index: 37 ml/m2 Stroke Volume Index29.18 ml/m2 LVOT: 2.2 cm Cardiac Index:2.45 l/min/m2 Ascending Aorta:3 cm Doppler Measurements AV Peak Velocity: 119 cm/s AV Peak Gradient: 5.66 mmHg MV P1/2t: 68 msec AV Mean Gradient: 3 mmHg MV Mean Gradient: 4 mmHg AV VTI:21.5 cm MV Area (continuity): 2.19 cm2 LVOT Peak Velocity: 88.1 cm/s LVOT VTI15.9 cm MV Area (PHT): 3.24 cm2 AV Area (Continuity):2.81 cm2 PV Peak Velocity: 119 cm/s PV Peak Gradient: 5.66 mmHg E' Septal Velocity: 5.98 cm/s E' Lateral Velocity: 6.31 cm/s Cardiac Anatomy Left Ventricle/Interventricular Septum The left ventricle is poorly visualized. The left ventricular size is normal. The left ventricular wall thickness is mildly increased. The LV systolic function is low normal . The left ventricular ejection fraction is 50-55 %. Unable to adequately assess regional wall motion despite use of LV contrast agent. Left Atrium/Interatrial Septum The left atrium is mildly dilated. Aortic Valve The aortic valve is poorly visualized. Mitral Valve The mitral valve is poorly visualized. Aorta The aorta is poorly visualized. Peak gradient across the prior coarctation repair (per history) is 19 mm Hg. Right Ventricle The right ventricle is poorly visualized. Right Atrium The right atrium is normal in size. Pulmonic Valve The pulmonic valve is poorly visualized. The pulmonic valve velocity is normal. There is mild pulmonic regurgitation. Tricuspid Valve The tricuspid valve is poorly visualized. Pumonary Artery An accurate pulmonary artery pressure could not be obtained. Venous Structures The inferior vena cava is poorly visualized. Pericardium/Extracardiac There is no significant pericardial effusion. Summary The left ventricle is poorly visualized. The left ventricular size is normal. The left ventricular wall thickness is mildly increased. The LV systolic function is low normal . The left ventricular ejection fraction is 50-55 %. Unable to adequately assess regional wall motion despite use of LV contrast agent. The left atrium is mildly dilated. The aorta is poorly visualized. Peak gradient across the prior coarctation repair (per history) is 19 mm Hg. The right ventricle is poorly visualized. Comparison Comparison is made to the study of February 22, 2023. Limited study making direct comparison difficult. Signature * Event Display: Echocardiogram - Complete Authored Date: Cardiology * Event Display: Cardiac Rhythm Strips Authored Date: * Event Display: Cardiac Rhythm Strips Authored Date: * Event Display: Cardiac Rhythm Strips Authored Date: Hospital Progress note * Coppellotti RN, Dru: PERFORM, SIGN, VERIFY Event Display: Progress Note Hospital Authored Date: Patient: KUSHAL LIN Age: 24 years Sex: Female : 2000 Associated Diagnoses: None Author: Dru Cummings RN Findings Problem Related to Alteration in Cardiac Function (new) : Alteration in Cardiac Function/new 10/26/2024 21:00 EST Alteration in Cardiac Status Related to Heart failure Goals & Outcomes, Cardiac Status Pt will resume/maintain adequate cardiac output, Pt will resume/maintain adequate hemodynamic status, Pt will resume/maintain adequate respiratory function, Pt will maintain adequate nutrition status, Pt/caregiver will state understanding of diagnosis Cardiac Interventions Implemented Assess/monitor cardiac status, Assess/monitor neuro status, Assess/monitor respiratory status, Call/Report variances in ECG to provider, Ensure adequate caloric intake, Teach/encourage deep breath & cough exercises, Team conversation regarding appropriate levelof care Goals/Interventions, Cardiac Yes Cardiac, Problem Start 10/25/2024 19:22 Reviewed Plan with, Cardiac Status Patient Patient Progression, Cardiac Status Resolved problem Cardiac, Problem Resolved 10/27/2024 5:11 . Alteration in Respiratory Function (new) : Alteration in Respiratory Function/new 10/26/2024 21:00 EST Alteration in Resp Status Related to Influenza/RSV Goals & Outcomes, Respiratory Pt will maintain/resume baseline physical assessment, Pt will notdevelop complications r/t mechanical ventilation, Pt will not develop complications r/t immobility Interventions, Respiratory Assess/monitor tolerance to IV infusions; verify rate/dose, Assess for and report S&S of respiratory distress, Initiate VAP prevention strategies, Position for comfort& optimal oxygenation, Initiate pulmonary rehab nurse consult, Teach/encourage use of incentivespirometer, Teach the proper use of inhalers, Teach purse lip breathing as needed for breathing retraining, Teach tripod positioning to promote air exchange Goals/Interventions, Respiratory Yes Respiratory, Problem Start 10/25/2024 20:23 Reviewed Plan with, Respiratory Patient Patient Progression, Respiratory Plan Initiation . Nursing Data Cardiac Data. : Cardiac Data. 10/26/2024 20:12 EST Heart Rhythm Regular (Modified) Pacemaker No (Modified) Cardiac Rhythm Normal sinus rhythm (Modified) Edema, Left Pretibial 1+ trace (Modified) Edema, Right Pretibial 1+ trace (Modified) Ankle, left 1+ trace (Modified) Ankle, right 1+ trace (Modified) radiation monitor Yes (Modified) Cardiovascular WNL except (Modified) . Respiratory/Pulmonary Data. 10/25/2024 20:11 EST Chest expansion Symmetrical Upper Airway Wheezing, inspiratory Cough Productive, Hacking Left Upper Lobe Breath Sounds Diminished, Wheezing, inspiratory Right Upper Lobe Breath Sounds Diminished, Wheezing, inspiratory Right Middle Lobe Breath Sounds Diminished Left Lower Lobe Breath Sounds Diminished Right Lower Lobe Breath Sounds Diminished Respiratory Treatment(s) Cough and deep breathe Respiratory Treatment(s) Cough and deep breathe, Updraft Nebulizer Therapy/MDI Respiratory WNL except . Evaluation A&Ox3 throughout shift, patient having menses experiencing cramping for which she is recieving Tylenol 650 for q4 when awake. Furthermore, continues to report cough and audible weezes, as such neb treatments given. While patient remains SR, pressures are going up with each use, last systolic 103. As such witheld a third dose that would be given near the end of the shift. Patient SR on tele, mi nimal edema, voiding in the bathroom, encouraged to use a hat. Patient voiding when havign BM, as such count is off. Otherwise, patient noel to sleep more on her lucinda,e sleeping more in the bed today with occasional rests in the recliner. Reports feeling better. Will continue to give cough medicien and tylenol when appropriate. Further advice by MD beneficial with neb treatments risk vs benefit. Monitoring resp status and BP, with plan for echo prior to D/C. Remains on contact droplet precautionfor the RSV. . * Lisseth Keller RN: VERIFY, PERFORM, SIGN Event Display: Progress Note Hospital Authored Date: [id number] Patient: KUSHAL LIN Age: 24 years Sex: Female : 2000 Associated Diagnoses: None Author: Lisseth Keller RN Findings Problem Related to Alteration in Cardiac Function (new) : Alteration in Cardiac Function/new 10/26/2024 9:00 EST Alteration in Cardiac Status Related to Heart failure Goals & Outcomes, Cardiac Status Pt will resume/maintain adequate cardiac output, Pt will resume/maintain adequate hemodynamic status, Pt will resume/maintain adequate respiratory function, Pt will maintain adequate nutrition status, Pt/caregiver will state understanding of diagnosis Cardiac Interventions Implemented Assess/monitor cardiac status, Assess/monitor respiratory status,Monitor & document daily weight BH Goals/Interventions, Cardiac Yes Cardiac, Problem Start 10/25/2024 19:22 Reviewed Plan with, Cardiac Status Patient Patient Progression, Cardiac Status Plan Initiation . Narrative/Incidental Pt alert oriented sitting up in bed tele on shows s.r. with pac's no c.p. noted. Pt has some shortness of breath with minimal exertion on respitory tx for asthma. Pt oob independtly in room awaiting echo to be done .. * Lizzeth DUPREE, Saud: MODIFY, MODIFY, MODIFY, MODIFY, PERFORM, MODIFY, MODIFY Gurinder Valentine MD: MODIFY Event Display: Progress Note Hospital Authored Date: [id number] Patient: ??KUSHAL LIN ? Age:??24 Years?Sex:??Female?:??2000?? 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 She was found to be positive for RSV and slightly??volume overloaded with possible new diagnoses of HF.? Past 24 hrs: Pt was admitted overnight? This morning??patient endorsing that her breathing is slightly improved since Friday??when she initially started feeling sick??however??still gets short of breath??when laying flat which is new for her.?? States she is continue to have a dry cough and??diarrhea has decreased??overall. ?? Medications: Scheduled: (4) Enoxaparin 40 mg Inj ??40 mg 0.4 mL, Subcutaneous Injection, 2 times a day Fluticasone Propionate 50mcg/inh Nasal Neal ??100 mcg 2 sprays, Nares, Both, Daily Loratadine 10 mg Tablet ??10 mg, By Mouth, Daily NaCl 0.9% Flush 3ml ??3 mL, IV Push, Every 8 hours ?? Vitals: Tmax:98.4?? HR: 80s-90s BP: 134/90 O2sat: 95 %??Room Air ?? I&O: I:120?? O: none??charted N: unclear? Labs/Micro: WBC 9.1Hgb 11.5, stable??MCV 74.0 Electrolytes WNL LDH 284 Iron level 23, TIBC 352, ferritin 29 NT proBNP 2962 Trop flat 13, 11 TSH 0.94 ?? RSV positive ?? Imaging:Chest 2 Views Frontal and Lat 10/25/24 12:31:57 IMPRESSION:Findings are consistent with a volume overload/mild congestive heart failure pattern. ?? Interval Updates: ?? Cardiology saw the patient and??thinks the RSV infection is causing her symptomatology??and does not believe??she is fluid overloaded. ??But recommend??still obtaining an echo cardiogram. ? Review of Systems 12 point review??of symptoms??is otherwise negative except as mentioned above.?? Objective Vital Signs?? Temperature: 97.3 DegF (10/26/24 01:00:00) Temperature Route: Axillary (10/26/24 01:00:00) Pulse Rate: 86 bpm (10/26/24 01:00:00) Respiratory Rate: 24 br/min (10/26/24 01:00:00) Systolic Blood Pressure: 134 mm Hg (10/26/24 01:00:00) Diastolic Blood Pressure:??90 mm Hg??High (10/26/24 01:00:00) Blood pressure sites: Arm, left (10/26/24 01:00:00) Mean Arterial Pressure: 105 mm Hg (10/26/24 01:00:00) Pulse Pressure: 44 mm Hg (10/26/24 01:00:00) Oxygen Saturation: 95 % (10/26/24 01:00:00) Mode of Delivery (Oxygen): Room air (10/26/24 01:00:00) Early Warning Score: 6 (10/26/24 02:10:12) ? Intake/Output? 10/25 16:01 10/26 07:00 10/25 07:00 10/24 07:00 10/23 07:00 ?? 10/26 07:32 10/26 07:32 10/26 06:59 10/25 06:59 10/24 06:59 Intake ?120 ?0 ?120 ?0 ?0 Output ?200 ?0 ?200 ?0 ?0 Net Total ?-80 ?0 ?-80 ?0 ?0 ? Physical Exam General: No acute distress HEENT: Moist mucous membranes, very thick short neck Respiratory: Lungs??with limited air movement,??(+)??wheezes,??nocrackles Cardiovascular:??Normal rate, regular??rhythm. Clear S1, S2??_.??No??heave,??no??murmur,??no??rub, unable to assess JVD Abdomen: Normal active bowel sounds,??soft, non-tender,??non-??distended/obese Musculoskeletal:??(+) trace??LE edema. Moving all extremities Neurologic: Alert & Oriented x4, no focal deficits Vascular: 2+ radial and PT?? Skin:??Warm and??perfused Results Recent Labs BLOOD COUNT & DIFF WBC 9.1 k/mm3 ()?? 10/26/2024 01:23 RBC 5.30 m/mm3 ()?? 10/26/2024 01:23 Hgb 11.5 Gm/dL (Low)?? 10/26/2024 01:23 Hct 39.2 % ()?? 10/26/2024 01:23 MCV 74.0 femtoliters (Low)?? 10/26/2024 01:23 MCH 21.7 pg (Low)?? 10/26/2024 01:23 MCHC 29.3 Gm/dL (Low)?? 10/26/2024 01:23 Platelet Count 283 k/mm3 ()?? 10/26/2024 01:23 RDW-SD 45.4 femtoliters ()?? 10/26/2024 01:23 MPV 10.2 femtoliters ()?? 10/26/2024 01:23 Nucleated RBC (Automated) 0.0 #/100 WBC'S ()?? 10/26/2024 01:23 Abs. NRBC 0.0 k/mm3 ()?? 10/26/2024 01:23 Abs. Neut 7.6 k/mm3 (High)?? 10/26/2024 01:23 Abs. Lymph 0.7 k/mm3 (Low)?? 10/26/2024 01:23 Abs. [place] 0.7 k/mm3 ()?? 10/26/2024 01:23 Abs. Eo 0.0 k/mm3 ()?? 10/26/2024 01:23 Abs. Baso 0.0 k/mm3 ()?? 10/26/2024 01:23 Neut % 83.9 % (High)?? 10/26/2024 01:23 Lymph % 7.6 % (Low)?? 10/26/2024 01:23 [place] % 8.1 % ()?? 10/26/2024 01:23 Eos % 0.0 % ()?? 10/26/2024 01:23 Baso % 0.1 % ()?? 10/26/2024 01:23 Retic Count 2.2 % (High)?? 10/26/2024 01:23 Retic Count Corrected 1.9 % ()?? 10/26/2024 01:23 Retic Production Index 1.9 % ()?? 10/26/2024 01:23 Imm Gran 0.3 % ()?? 10/26/2024 01:23 Abs. Imm Gran 0.0 k/mm3 ()?? 10/26/2024 01:23 ?? CARDIAC Nt-Probnp 2962 pg/mL (High)?? 10/25/2024 11:19 High Sensitivity Troponin (HSTnT) 11 ng/L ()?? 10/25/2024 14:04 ?? CHEM GENERAL Sodium 140 mmol/L ()?? 10/26/2024 01:23 Potassium 3.9 mmol/L ()?? 10/26/2024 01:23 Chloride 105 mmol/L ()?? 10/26/2024 01:23 Bicarbonate Level 21 mmol/L (Low)?? 10/26/2024 01:23 Anion Gap 14 ()?? 10/26/2024 01:23 Glucose Level 132 mg/dL (High)?? 10/26/2024 01:23 BUN 12 mg/dL ()?? 10/26/2024 01:23 Creatinine-Blood 0.84 mg/dL ()?? 10/26/2024 01:23 Estimated GFR Creatinine 99 ML/MIN/1.73 M2 ()?? 10/26/2024 01:23 Calcium 8.7 mg/dL ()?? 10/26/2024 01:23 Calcium, Ionized pH Corrected 1.16 mmol/L ()?? 10/26/2024 01:23 Phosphorus 4.0 mg/dL ()?? 10/26/2024 01:23 Magnesium 2.0 mg/dL ()?? 10/26/2024 01:23 Protein, Total 7.1 Gm/dL ()?? 10/26/2024 01:23 Albumin 3.9 Gm/dL ()?? 10/26/2024 01:23 AG Ratio 1.2 ()?? 10/26/2024 01:23 LDH 284 units/L (High)?? 10/26/2024 01:23 Alkaline Phosphatase 66 units/L ()?? 10/26/2024 01:23 AST (SGOT) 19 units/L ()?? 10/26/2024 01:23 ALT (SGPT) 24 units/L ()?? 10/26/2024 01:23 Bilirubin, Total 0.4 mg/dL ()?? 10/26/2024 01:23 Vitamin B12 Level 329 pg/mL ()?? 10/26/2024 01:23 Folic Acid Level 9.1 ng/mL ()?? 10/26/2024 01:23 Iron Level 23 mcg/dL (Low)?? 10/26/2024 01:23 Iron Binding Capacity, Unsaturated 329 mcg/dL ()?? 10/26/2024 01:23 Iron Binding Capacity, Estimated Total 352 mcg/dL ()?? 10/26/2024 01:23 % Iron Saturation 7 % (Low)?? 10/26/2024 01:23 Ferritin Level 29 ng/mL ()?? 10/26/2024 01:23 ?? COAG INR 1.1 ()?? 10/26/2024 01:23 Protime (PT) 11.9 seconds (High)?? 10/26/2024 01:23 ?? ENDOCRINE/TUMOR MARKER TSH 0.94 uIU/mL ()?? 10/26/2024 01:23 ?? HEME OTHER Hold Blue Top SPECIMEN DISCARDED AFTER 4 HOURS. ()?? 10/25/2024 12:35 ?? URINE OTHER Est Creatinine Clearance 70.64 mL/min ()?? 10/26/2024 02:10 ?? VIROLOGY Influenza A PCR NEGATIVE ()?? 10/25/2024 14:06 Influenza B PCR NEGATIVE ()?? 10/25/2024 14:06 RSV PCR POSITIVE (Abnormal)?? 10/25/2024 14:06 COVID-19 PCR Specimen Source NASAL ()?? 10/25/2024 14:06 COVID-19 PCR Result NEGATIVE ()?? 10/25/2024 14:06 ? 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 She was found to be positive for RSV and slightly??volume overloaded with possible new diagnoses of HF.?Cardiology consulted. ??Unlikely heart failure??because of symptoms as she is euvolemic.?? Likely from??RSV infection. ? 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 >11, TSH 0.94 NT???proBNP 2962 (possibly Left atrial dilation contributing to elevation) Chest x-ray??consistent with??some mild pulmonary edema Cardiology consult, appreciate recommendations below ?? Plan Follow-up echocardiogram??results No need for diuresis at this time Recommend outpatient sleep study follow-up??with patient's??congenital senior data quality analyst, which is being arranged Tele I&O monitoring ?? RSV (respiratory syncytial virus infection) (B33.8):?? Currently on room air. Albuterol with good effect Patient's symptoms started 5 days ago,??likely experiencing??the worst of her??RSV symptoms. ?? Plan Continue supportive care flonase, anti histamine,??lozenges and tylenol.?? albuterol??nebulizer??every 4 hours as needed ?? Hypochromic-microcytic anemia (D50.9):?? No report of jass??hemorrhage.?? Anemia workup??revealed iron lvls 23, TIBC 352, Ferritin 29 likely iron deficiency anemia, unclear etiology,??potentially dietary related ?? Plan?? IV iron infusion??today ? Chronic/stable/resolved??conditions: ??Asthma (J45.909):??Childhood asthma.?Albuterol as needed ?? Quality Metrics: Diet: Cardiac DVT/VTE??Prophylaxis: Lovenox 40 mg bid due to weight CODE STATUS: Full ? Pt seen and care discussed with Dr. Valentine ?? Saud Moreau MD Anesthesiology PGY-1 Pager [phone] ? Attending Attestation: I saw and examined independently and reviewed the chart on the day of service. ??I have discussed the case and its management??with the resident as documented in the resident note on the day of service.??I agree with the resident's note and plan as documented. Gurinder Valentine MD. ? Consult note * Ho DUPREE, Alden: MODIFY, PERFORM Event Display: Consultation Note Authored Date: Patient: ??KUSHAL LIN ? Age:??24 Years?Sex:??Female?:??2000?? Indication for Consult ?? [facility] - Cardiology Consultation Note Consult Requesting Physician: Saud Avila MD Consulting Credit Associate: Sara Collins MD Primary Credit Associate: Jesse Louis MD Consult Reason:??Heart failure History of Present Illness/Interval History This is a 24-year-old female with history of multiple muscular VSDs, by commissural aortic valve with partial fusion of intracoronary commissure, aortic coarctation, PDA, and parachute mitral valve with mild mitral stenosis who presented to [facility] on 10/25/2024 due to shortness of breath.?? Patient stated approximately 4 days ago she started to develop a cough and some shortness of breath.?? Patient states her shortness of breath was worsened when lying flat as well as with exertion.?? Patient states she has asthma and has intermittent episodes of shortness of breath on exertion however this started when walking across her room.?? Patient also complained of some chest pain that she described right-sided however stated this only occurs with coughing.?? Because of the symptoms patient presented to urgent care where chest x-ray showed concern for cardiomegaly.?? Patient wasgiven prednisone and doxycycline at that time however due to concern of the cardiomegaly, patient presented to [facility] for further evaluation. ?? On arrival to the ED blood pressure was 151/102, pulse 91, SpO2 95% on room air, patient was afebrile.?? EKG was performed that demonstrated sinus rhythm with PACs as well as RSR pattern in V1 concerning for ventricular conduction delay.?? There also noted to be some T wave inversions in inferolateral leads however these were not new from previous EKG.?? Labs were performed that demonstrated NT proBNP of 2962 with high-sensitivity troponin 13 that down trended to 11.?? Patient is also found to be RSV positive.?? Chest x-ray was performed that demonstrated concern for mild pulmonary edema.?? Due to concern for heart failure exacerbation patient was admitted for further management. ?? Upon my evaluation patient is resting comfortably in bed.?? Patient states she feels somewhat better since coming to the hospital and getting breathing treatments.?? Patient denies any current chest pain or palpitations at this time.?? Patient states she last saw Dr. Jesse Louis with [facility] congenital clinic back in December 2022 however she has been doing well and does not regularly follow-up. Physical Exam Vitals & Measurements T:??97.7?F?? HR:??92??(Peripheral)?? RR:??18?? BP:??139/89?? SpO2:??92%?? HT:??150??cm?? WT:??119.4??kg?? BMI:??53.07?? Weight lb/oz: 263 lb 4 oz General Appearance: The patient is in NAD. Cardiovascular: RRR S1 and S2 heard with no M/R/G. Unable to assess JVD Respiratory:?Moderate expiratory wheezes noted throughout all lung rg. GI: Soft. Nontender and nondistended. Normal bowel sounds present throughout abdomen.?? MS: ??No edema or erythema in the lower extremities. Neuro: ??No slurred speech. ??Patient seen moving their upper and lower extremities independently. Psych: Alert and oriented x3. Appropriate and pleasant. Assessment/Plan ?? Problem list: 1.?? RSV infection 2.?? Multiple muscular VSDs at status postsurgical correction 3.?Bicommissural??AV with partial fusion of inner coronary commissure 4. ??Coarctation of aorta 5. ??[place] mitral valve with mitral stenosis 6.?? PDA ?? This is a 24-year-old female with above past medical history presented to [facility] with RSV infection. ??Patient presented with cough and congestion who presented to urgent care who told her her??heart appeared enlarged after getting a chest x-ray.?? Chest x-ray here on arrival to the ED that showed??upper limit of normal heart size with??no significant pulmonary edema. ??On exam patient appears euvolemic at this time. ??Patient does have shortness of breath??on exertion however on exam has??expiratory wheezes noted. ??Patient does have a history of asthma and states??she has intermittent episodes of asthma flareups did not feel like this.?? Patient symptoms likely are secondary to asthma or pneumonia RSV??and not fluid overload.?? Would recommend??obtaining an echocardiogram??this admission and should follow-up with her congenital??senior data quality analyst outpatient.?? Would also recommend obtaining a sleep study outpatient as??patient??has risk factors for ALEJANDRA. ?? Recommendations: -Follow-up echocardiogram??results -No need for diuresis at this time -Recommend outpatient sleep study -We will arrange follow-up??with patient's??congenital senior data quality analyst. ? Patient was discussed with Dr. Collins ?? Cardiology will sign off at this time. Please reach out for further questions. ?? Alden Teague MD Cardiovascular Disease Fellow PGY-4 [facility] ED Pager #[phone] Allergies NKA Home Medications Albuterol: 2 puffs, Inhalation, Every 4 hours, PRN (Wheezing/Shortness of Breath) Fluticasone Nasal: 50 mcg = 1 sprays, Nares, Both, 2 times a day Naproxen: 500 mg = 1 tablet, By Mouth, 2 times a day, PRN (Cramps) Hospital Medications Medications (14) Active SCHEDULED: (4) Enoxaparin 40 mg Inj (Enoxaparin Inj) ??40 mg 0.4 mL, Subcutaneous Injection, 2 times a day Fluticasone Propionate 50mcg/inh Nasal Neal (fluticasone 50 mcg/inh nasal spray) ??100 mcg 2 sprays, Nares, Both, Daily Loratadine 10 mg Tablet (loratadine 10 mg oral tablet) ??10 mg, By Mouth, Daily NaCl 0.9% Flush 3ml (NaCL 0.9% Flush) ??3 mL, IV Push, Every 8 hours CONTINUOUS: (0) PRN: (10) Acetaminophen 325 mg Tablet (Acetaminophen Tablet) ??650 mg, By Mouth, Every 6 hours Albuterol 0.083% Inhalation Solution (Albuterol 0.083% inhalation nusrat) ??2.5 mg 3 mL, BAND Nebulizer, Every 4 hours Chloraseptic Lozenge ??1 lozenge, By Mouth, Every 3 hours Dextromethorphan-Guaifenesin 20 mg-200 mg/10 mL Liqu UD (Robitussin DM Liquid) ??10 mL, By Mouth, Every 4 hours Docusate Sodium 100 mg Capsule (Docusate Sodium Capsule) ??100 mg 1 capsule, By Mouth, 2 times a day Melatonin 3 mg Tablet (Melatonin Tablet) ??3 mg, By Mouth, Daily at bedtime NaCl 0.9% Flush 3ml (NaCL 0.9% Flush) ??3 mL, IV Push, Every 8 hours Polyethylene Glycol 17 Gm Powder (MiraLax Powder) ??17 Gm 1 pack/packet, By Mouth, Daily Senna Tablet ??8.6 mg 1 tablet, By Mouth, 2 times a day Simethicone 80 mg Chewable Tablet (Simethicone Tablet) ??80 mg, Chew, 3 times a day Lab Results Cardiology Labs Blood Count & Diff?? COAG?? General Chemistry?? Cardiac?? WBC: 9.1 k/mm3 (10/26/24) INR: 1.1 (10/26/24) Sodium: 140 mmol/L (10/26/24) Bilirubin, Total: 0.4 mg/dL (10/26/24) RBC: 5.3 m/mm3 (10/26/24) Protime (PT):??11.9 seconds??High (10/26/24) Potassium: 3.9 mmol/L (10/26/24) ?? Hgb:??11.5 Gm/dL??Low (10/26/24) ?? Chloride: 105 mmol/L (10/26/24) ?? Hct: 39.2 % (10/26/24) ?? Bicarbonate Level:??21 mmol/L??Low (10/26/24) ?? MCV:??74 femtoliters??Low (10/26/24) ?? Anion Gap: 14 (10/26/24) ?? Platelet Count: 283 k/mm3 (10/26/24) ?? Glucose Level:??132 mg/dL??High (10/26/24) ? BUN: 12 mg/dL (10/26/24) ? Creatinine-Blood: 0.84 mg/dL (10/26/24) ? Estimated GFR Creatinine: 99 ML/MIN/1.73 M2 (10/26/24) ? Calcium: 8.7 mg/dL (10/26/24) ? Magnesium: 2 mg/dL (10/26/24) ? Protein, Total: 7.1 Gm/dL (10/26/24) ? Albumin: 3.9 Gm/dL (10/26/24) ? Alkaline Phosphatase: 66 units/L (10/26/24) ? AST (SGOT): 19 units/L (10/26/24) ? ALT (SGPT): 24 units/L (10/26/24) ?? Diagnostic Impression ECG ECG 12-Lead ?? 11:53:10 Please click on pdf link to open report ?? Signed By: Odette DUPREE, Timi Humphrey ?? ECG 12-Lead ?? 11:53:10 Ventricular Rate: 98 BPM Atrial Rate: 98 BPM P-R Interval: 146 ms QRS Duration: 100 ms Q-T Interval: 370 ms QTC Calculation(Bazett): 472 ms P [place]: 28 degrees R [place]: 64 degrees T [place]: 267 degrees Sinus rhythm with Premature atrial complexes with Aberrant conduction RSR???or QR pattern in V1 suggests right ventricular conduction delay ST and T wave abnormality, consider inferior ischemia ST and T wave abnormality, consider anterolateral ischemia Abnormal ECG When compared with ECG of 08-Oct-2023 15:05, Premature atrial complexes are now Present T wave inversion more evident in Anterior leads Confirmed ?? Signed By: Odette DUPREE, Timi Humphrey Stress Test No qualifying data available. Echo Echocardiogram - Complete ?? 10:06:04 Summary The left ventricle is poorly visualized. The left ventricular size is normal. The left ventricular wall thickness is mildly increased. The LV systolic function is low normal . Cannot assess LV ejection fraction. Image quality is inadequate to assess regional wall motion. VSD closure devices are not well seen. ?? The left atrium is poorly visualized. The left atrium is severely dilated. ?? The aortic valve is is poorly visualized. There is mild aortic stenosis. There is no significant aortic regurgitation. ?? The mitral valve is poorly visualized. Mitral leaflet excursion is mildly reduced . The mitral valve mean gradient is 4 mmHg at 80 bpm. There is no significant mitral regurgitation. ?? The right ventricle is normal in size. Right ventricular systolic function is reduced. ?? Comparison Comparison is made to the study of November 02, 2021. Prior study even more severely limited. ?? Signature ?? Signed By: Kizzy DUPREE, Jose R Turner Problem List/Past Medical History Ongoing Coarctation Complex sleep apnea syndrome Obstructive sleep apnea hypopnea, severe Severe obesity VSD - Closure of ventricular septal defect Procedure/Surgical History No qualifying data available. Social History Alcohol Use: Current. Frequency: 1-2 times per month. Electronic Cigarette/Vaping Electronic Cigarette Use: Never. Tobacco Use: Never (less than 100 in lifetime). Family History No family history recorded. * Dennis DUPREE, Sara Ford: PERFORM Event Display: Consultation Note Authored Date: [id number] Attending Attestation: I have seen and evaluated this patient on??the day that??the fellow note was prepared. I have discussed the case and its management with the fellow and agree with the findings and plan as documented in the above note with the following modifications/additions (if any): ?? The above note was prepared with the help of voice recognition software. Please excuse any grammatical or spelling errors that may have occurred. ?? Note * Nesha Vargas RN: PERFORM Event Display: Discharge/Transfer Note Hospital Authored Date: [id number] Nursing Discharge Note Entered On: 10/27/2024 14:19 EST Performed On: 10/27/2024 14:19 EST by Nesha Vargas RN Nursing Discharge Note 2 Discharge Time : 10/27/2024 14:15 EST Discharge Level of Care at Discharge : Home/Assisted/Foster Care Professor Of Family Medicine Utilized : No AMA Form Signed : No Patient Left Unit Via : Wheelchair Patient Accompanied Off Unit with : Responsible adult DC Instructions Provided & Signed by Pt : Yes Patient Understands D/C Instructions : Yes Verbalized Understanding of D/C Plan By : Family, Patient Patient Instructions Discharge Signed : Yes Did Pt have Specialty Bed or Wound Vac : No Nesha Vargas RN - 10/27/2024 14:19 EST * Lizzeth DUPREE, Saud: PERFORM, MODIFY, MODIFY Meme DUPREE, Gurinder: MODIFY Event Display: Discharge/Transfer Note Hospital Authored Date: [id number] Patient: ??KUSHAL LIN ? Age:??24 Years?Sex:??Female?:??2000?? Patient Information Discharge Location: Primary Care Physician: Bradford DUPREE , Louisa Farrar Admit Date/Time: 10/25/2024 16:01 Discharge date??10/27/2024 Discharge Disposition Discharge Disposition: Home: No Services Discharge Diagnosis Acute bronchitis due to respiratory syncytial virus (RSV) (J20.5) RSV (respiratory syncytial virus infection) (B33.8) Congenital heart disease (Q24.9) Hypochromic-microcytic anemia (D50.9) Asthma (J45.909) Hypertension (I10) _ Discharge Medications Albuterol (Ventolin 90 mcg Inhaler)?2?puff(s)?Inhalation?Every 4 hours?as needed?Wheezing/Shortness of Breath Ferrous Sulfate (ferrous sulfate 325 mg oral enteric coated tablet)?325?Milligram?By Mouth?Every other day? Fluticasone Nasal (Flonase Allergy Relief 50 mcg/inh nasal spray)?1?spray(s)?50?Microgram?Nares, Both?2 times a day Naproxen (naproxen 500 mg oral tablet)?1?tab(s)?500?Milligram?By Mouth?2 times a day?as needed?Cramps Polyethylene Glycol 3350 (MiraLax oral powder for reconstitution)?17?gram?By Mouth?Daily?dissolve in 4 to 8 oz of beverage Senna (senna 187 mg oral tablet)?1?tab(s)?8.6?Milligram?By Mouth?2 times a day?as needed?Constipation?for 30?Days ? Medications Started Ferrous Sulfate (ferrous sulfate 325 mg oral enteric coated tablet)?325?Milligram?By Mouth?Every other day? Polyethylene Glycol 3350 (MiraLax oral powder for reconstitution)?17?gram?By Mouth?Daily?dissolve in 4 to 8 oz of beverage Senna (senna 187 mg oral tablet)?1?tab(s)?8.6?Milligram?By Mouth?2 times a day?as needed?Constipation?for 30?Days ?? Medications Discontinued none Doses Changed none Allergies Allergies ?(Active and Proposed Allergies Only) NKA? (Severity: Unknown severity, Onset: Unknown) ? PCP Follow-Up/Heads-Up Patient was having shortness of breath with lying flat??initially thought to be possible acute heart failure exacerbation however??cardiology??did not??think this was the case??and??her symptoms wereattributed to??RSV??bronchitis. discuss management of asthma, iron??deficiency anemia, and recheck blood pressure measurements Follow-up??hemoglobin A1c??level as??patient was??mildly hyperglycemic while in the hospital Future Appointments Friday. 2024 2:30 PM EST ?? 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 obstructive sleep apnea not on CPAP, asthma and ob esity who presented with shortness of breath. She was found to be positive for RSV.?? She was not volume overloaded from a clinical standpoint. Cardiology consulted and made their recommendations below, they did not believe her to be in acute heart failure. Overall patient is not requiring any O2 and medical stable for discharge.?? She improved with improvement in her RSV bronchitis. 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 >11, TSH 0.94 NT???proBNP 2962 (possibly Left atrial dilation contributing to elevation) Chest x-ray??consistent with??some mild pulmonary edema Cardiology consulted?? Echo done on 10/2024 showed LV function is low normal with EF of 50 to 55%, left atrium is mildly dilated, unable to adequately assess regional wall motion abnormalities. Diastolic BP mildly elevated to 108 ?? Recommendations Follow up with??[facility] to schedule follow up appointment for ALEJANDRA follow-up??with patient's??congenital senior data quality analyst, which is scheduled Recheck BP measures when not in the hospital with PCP ? RSV (respiratory syncytial virus infection) (B33.8):?? History of asthma Currently on room air. Albuterol with good effect Patient's symptoms started 5 days ago,??likely experiencing??the worst of her??RSV symptoms. ?? Plan Continue supportive care flonase??and tylenol.?? Continue??home??albuterol??rescue??inhaler??every 4 hours as needed ?? Hypochromic-microcytic anemia (D50.9):?? No report of jass??hemorrhage.?? Anemia workup??revealed iron lvls 23, TIBC 352, Ferritin 29 likely iron deficiency anemia, unclear etiology,??potentially dietary related ?? Recommendations continue oral iron every other day Follow-up lab work with??your PCP??to discuss potential causes of??iron deficiency anemia ?? Vital Signs?? Temperature: 98.1 DegF (10/27/24 08:32:00) Temperature Route: Oral (10/27/24 08:32:00) Pulse Rate:??93 bpm??High (10/27/24 08:32:00) Respiratory Rate: 20 br/min (10/27/24 08:32:00) Systolic Blood Pressure: 135 mm Hg (10/27/24 08:32:00) Diastolic Blood Pressure:??108 mm Hg??High (10/27/24 08:32:00) Blood pressure sites: Arm, left (10/27/24 08:32:00) Mean Arterial Pressure: 117 mm Hg (10/27/24 08:32:00) Pulse Pressure: 27 mm Hg (10/27/24 08:32:00) Oxygen Saturation: 96 % (10/27/24 08:32:00) Mode of Delivery (Oxygen): Room air (10/27/24 08:32:00) Early Warning Score: 0 (10/27/24 08:33:46) ? . Physical Exam General: No acute distress HEENT: Moist mucous membranes, very thick short neck Respiratory: Lungs air entry bilaterally??minimal wheezing,??nocrackles Cardiovascular:??Normal rate, regular??rhythm. Clear S1, S2??_.??No??heave,??no??murmur,??no??rub, unable to assess JVD Abdomen: Normal active bowel sounds,??soft, non-tender,??non-??distended/obese Musculoskeletal:??(+) trace??LE edema. Moving all extremities Neurologic: Alert & Oriented x4, no focal deficits Vascular: 2+ radial and PT?? Skin:??Warm and??perfused [facility] Cardiology Pending Results Add On Lab HbA1C??Order ordered on 10/27/2024 Patient Education Titles Web[employer] Patient Education - RSV (Respiratory Syncytial Virus) Infection?? Follow-Up Appointments Added Follow Up ?Time Frame ?Comments Follow-up with adult congenital heart disease clinic at [facility] on 12/07/2024 at 2:30 PM ??[facility] You had a followup appointment in sleep medicine on 11/08/2022 Please contactour office at [phone], option 2, and we will be happy to reschedule the appointment. Bradford DUPREE , Louisa Farrar?1 to 2 weeks?to ensure resolution of symptoms,??discuss management of asthma, iron??deficiency anemia Patient Instructions DIAGNOSIS: RSV infection? TEST RESULTS: RSV??+? Your specific PATIENT CARE INSTRUCTIONS (what to do / when to return): []Please follow up with your PCP and with the Adult Congenital Heart disease clinic []Continue to use your albuterol inhaler as needed?? []Please return if you experience any worsening shortness of breath, chest pain/pressure, fever or chills or any new or concerning symptoms []??Follow-up with your PCP about??asthma??management and blood pressure management??and??blood sugar levels [] [] ? MEDICATIONS (what medications you should start (or stop) taking): []??Oral iron pills every other day?? []??Take MiraLAX and senna daily,??hold if experiencing multiple bowel movements [] [] Home Health Face to Face ^HomeHealthFTF Results Discharge Labs BLOOD COUNT & DIFF WBC 8.2 k/mm3 ()?? 10/27/2024 07:04 RBC 5.12 m/mm3 ()?? 10/27/2024 07:04 Hgb 11.2 Gm/dL (Low)?? 10/27/2024 07:04 Hct 38.7 % ()?? 10/27/2024 07:04 MCV 75.6 femtoliters (Low)?? 10/27/2024 07:04 MCH 21.9 pg (Low)?? 10/27/2024 07:04 MCHC 28.9 Gm/dL (Low)?? 10/27/2024 07:04 Platelet Count 278 k/mm3 ()?? 10/27/2024 07:04 RDW-SD 47.1 femtoliters (High)?? 10/27/2024 07:04 MPV 10.2 femtoliters ()?? 10/27/2024 07:04 Nucleated RBC (Automated) 0.0 #/100 WBC'S ()?? 10/27/2024 07:04 Abs. NRBC 0.0 k/mm3 ()?? 10/27/2024 07:04 Abs. Neut 7.6 k/mm3 (High)?? 10/26/2024 01:23 Abs. Lymph 0.7 k/mm3 (Low)?? 10/26/2024 01:23 Abs. [place] 0.7 k/mm3 ()?? 10/26/2024 01:23 Abs. Eo 0.0 k/mm3 ()?? 10/26/2024 01:23 Abs. Baso 0.0 k/mm3 ()?? 10/26/2024 01:23 Neut % 83.9 % (High)?? 10/26/2024 01:23 Lymph % 7.6 % (Low)?? 10/26/2024 01:23 [place] % 8.1 % ()?? 10/26/2024 01:23 Eos % 0.0 % ()?? 10/26/2024 01:23 Baso % 0.1 % ()?? 10/26/2024 01:23 Retic Count 2.2 % (High)?? 10/26/2024 01:23 Retic Count Corrected 1.9 % ()?? 10/26/2024 01:23 Retic Production Index 1.9 % ()?? 10/26/2024 01:23 Imm Gran 0.3 % ()?? 10/26/2024 01:23 Abs. Imm Gran 0.0 k/mm3 ()?? 10/26/2024 01:23 ? CARDIAC Nt-Probnp 2962 pg/mL (High)?? 10/25/2024 11:19 High Sensitivity Troponin (HSTnT) 11 ng/L ()?? 10/25/2024 14:04 ?? CHEM GENERAL Sodium 142 mmol/L ()?? 10/27/2024 07:07 Potassium 4.1 mmol/L ()?? 10/27/2024 07:07 Chloride 106 mmol/L ()?? 10/27/2024 07:07 Bicarbonate Level 24 mmol/L ()?? 10/27/2024 07:07 Anion Gap 12 ()?? 10/27/2024 07:07 Glucose Level 95 mg/dL ()?? 10/27/2024 07:07 BUN 13 mg/dL ()?? 10/27/2024 07:07 Creatinine-Blood 0.76 mg/dL ()?? 10/27/2024 07:07 Estimated GFR Creatinine 112 ML/MIN/1.73 M2 ()?? 10/27/2024 07:07 Calcium 8.6 mg/dL ()?? 10/27/2024 07:07 Calcium, Ionized pH Corrected 1.16 mmol/L ()?? 10/26/2024 01:23 Phosphorus 4.0 mg/dL ()?? 10/26/2024 01:23 Magnesium 2.0 mg/dL ()?? 10/27/2024 07:07 Protein, Total 7.1 Gm/dL ()?? 10/26/2024 01:23 Albumin 3.9 Gm/dL ()?? 10/26/2024 01:23 AG Ratio 1.2 ()?? 10/26/2024 01:23 LDH 284 units/L (High)?? 10/26/2024 01:23 Alkaline Phosphatase 66 units/L ()?? 10/26/2024 01:23 AST (SGOT) 19 units/L ()?? 10/26/2024 01:23 ALT (SGPT) 24 units/L ()?? 10/26/2024 01:23 Bilirubin, Total 0.4 mg/dL ()?? 10/26/2024 01:23 Vitamin B12 Level 329 pg/mL ()?? 10/26/2024 01:23 Folic Acid Level 9.1 ng/mL ()?? 10/26/2024 01:23 Iron Level 23 mcg/dL (Low)?? 10/26/2024 01:23 Iron Binding Capacity, Unsaturated 329 mcg/dL ()?? 10/26/2024 01:23 Iron Binding Capacity, Estimated Total 352 mcg/dL ()?? 10/26/2024 01:23 % Iron Saturation 7 % (Low)?? 10/26/2024 01:23 Ferritin Level 29 ng/mL ()?? 10/26/2024 01:23 ?? COAG INR 1.1 ()?? 10/26/2024 01:23 Protime (PT) 11.9 seconds (High)?? 10/26/2024 01:23 ?? ENDOCRINE/TUMOR MARKER TSH 0.94 uIU/mL ()?? 10/26/2024 01:23 ? HEME OTHER Hold Blue Top SPECIMEN DISCARDED AFTER 4 HOURS. ()?? 10/25/2024 12:35 ? URINE OTHER Est Creatinine Clearance 78.07 mL/min ()?? 10/27/2024 07:48 ? VIROLOGY Influenza A PCR NEGATIVE ()?? 10/25/2024 14:06 Influenza B PCR NEGATIVE ()?? 10/25/2024 14:06 RSV PCR POSITIVE (Abnormal)?? 10/25/2024 14:06 COVID-19 PCR Specimen Source NASAL ()?? 10/25/2024 14:06 COVID-19 PCR Result NEGATIVE ()?? 10/25/2024 14:06 ? Image ?XR Chest 2 Views Frontal and Lat??10/25/2024 12:27 by Lizett Quinones ?IMPRESSION: Findings are consistent with a volume overload/mild congestive heart failure pattern. ?? Pt seen and care discussed with Dr. Valentine ?? Saud Moreau MD Anesthesiology PGY-1 Pager [phone] ??minutes spent on discharge ? Attending Attestation: I saw and examined the patient with the resident team and reviewed the charton the day of service. ??I have discussed the case and its management??with the resident as documented in the resident note on the day of service.??I agree with the resident's note and plan as documented. Gurinder Valentine MD * Sam CHAPPELL, Nesha: PERFORM Event Display: Patient Education/Instruction Authored Date: [id number] Inpatient Adult Discharge Instructions. [address] [address] Name: KUSHAL LIN : 2000?? Visit: 10/25/2024 16:01?? Current Date: 10/27/2024 13:39 ?? Account: [id number]?? Inpatient Adult Discharge Instructions We would like to thank you for allowing us to assist you with your healthcare needs. The following includes patient education materials and information regarding your injury/illness. Our entire staffstrives to provide an excellent experience for our patients and their families. PLEASE ENSURE YOU FOLLOW-UP PER THE INSTRUCTIONS BELOW! ?? YOUR OPINION IS IMPORTANT TO US! Please complete the survey you may receive by mail or email. Your feedback will be used to make improvements to the healthcare experiences of our patients and their families. Surveys are administered by [employer] ?? If further treatment with your primary care physician or another doctor is recommended, it is important for you to keep the appointment. Call your primary care physician or return to the Emergency Department immediately if your condition worsens, fails to improve, or new symptoms develop. If you need to find a doctor, you can call [facility] [employer] for a referral at [phone] or toll free at [phone] ([phone]) or log in to [email or web address].. ?? [facility], in keeping with [facility] guidance, no longer requires face masks for staff, patientsor visitors in most situations. Similiar to time spent indoors at other locations, there is the chance that you were exposed to repiratory viruses during your time with us (such as flu or COVID-19). If you develop symptoms concerning for a viral respiratory infection, please seek testing (and treatment if indicated) from your medical provider or home test kit. ?? You can view and manage your care through the patient portal or by using a health care kannan of your choosing. [employer] is a website that allows you to securely view your medical information including your hospital discharge summary, office visit summaries, medications and follow-up visits. You can also request appointments, renew medications, and request access to your medical information using a health care kannan of your choosing, or just ask a question. You can enroll at [email or web address] or register during your next office visit. You have been discharged from [facility], Patient Care Unit: M7??. If you have any questions regarding these instructions, including results of studies pending, afteryou leave, please call us and we will be happy to assist you 28/04. [facility] Your Care Team Attending Physician Gurinder Valentine MD?? Consulting Providers Gurinder Valentine MD?? Discharging Providers Saud Moreau MD Reason for Your Visit new CHF??? Your Diagnosis Acute bronchitis due to respiratory syncytial virus (RSV) RSV (respiratory syncytial virus infection) Congenital heart disease Hypochromic-microcytic anemia Asthma Hypertension General medical Tests Performed Below is a partial list of the tests performed during your hospitalization. You may have had other tests and procedures not included in this list. Please discuss all test results with your provider. B Type Natriuretic Peptide (NT-proBNP) Basic Metabolic Panel CBC CBC w/ Differential Comprehensive Metabolic Panel COVID-19, RSV, and Flu A/B, Rapid PCR Ferritin Folate Level High??Sensitivity??Troponin T Hold Blue Top Tube INR Ionized Calcium Iron + Iron Binding Capacity LDH Magnesium Level Phosphorus Level Reticulocyte Ct TSH Vitamin B12 Level XR Chest 2 Views Frontal and Lat Add On Lab Order?? B Type Natriuretic Peptide (NT-proBNP)?? Basic Metabolic Panel?? CBC?? CBC w/ Differential?? COVID-19, RSV, and Flu A/B, Rapid PCR?? Comprehensive Metabolic Panel?? Ferritin?? Folate Level?? High??Sensitivity??Troponin T?? Hold Blue Top Tube?? INR?? Ionized Calcium?? Iron + Iron Binding Capacity?? LDH?? Magnesium Level?? Phosphorus Level?? Reticulocyte Ct?? TSH?? Vitamin B12 Level?? Chest 2 Views Frontal and Lat (XR Chest 2 Views Frontal and Lat)?? Primary Care Provider Bradford DUPREE , Louisa Farrar? Advance Directive Health Care Proxy on File Yes - Health Care Proxy Discharge Vitals Temperature: 98.1 DegF Height: 150 cm Pulse Rate:??93 bpm??High Weight: 119.8 kg Respiratory Rate: 20 br/min Body Mass Index:??53.07 kg/m2??Critical Systolic Blood Pressure: 135 mm Hg Body surface area: 2.23 Diastolic Blood Pressure:??108 mm Hg??High ?? Oxygen Saturation: 96 % ?? Studies Pending All studies ordered during this hospital stay have been completed unless listed below. Please discuss all pending results with your provider listed above in these instructions. ?? Add On Lab Order?? What to do next Instructions From Your Doctor DIAGNOSIS: RSV infection? TEST RESULTS: RSV??+? Your specific PATIENT CARE INSTRUCTIONS (what to do / when to return): []Please follow up with your PCP and with the Adult Congenital Heart disease clinic []Continue to use your albuterol inhaler as needed?? []Please return if you experience any worsening shortness of breath, chest pain/pressure, fever or chills or any new or concerning symptoms []??Follow-up with your PCP about??asthma??management and blood pressure management??and??blood sugar levels [] [] ? MEDICATIONS (what medications you should start (or stop) taking): []??Oral iron pills every other day?? []??Take MiraLAX and senna daily,??hold if experiencing multiple bowel movements [] [] ?? Orders? 10/27/24 13:23:00 EST?? Prescriptions??, ??10/27/24 13:23:00 EST?? Scheduled Follow-Up Appointments Friday 2:30 PM EST ?? With: Ariadne Hall NP Where: [facility] [address] [place] [address]- Status: Pending You Need to Schedule the Following Appointments Follow Up with??Follow-up with adult congenital heart disease clinic at [facility] cardiology on 12/07/2024 at 2:30 PM Follow Up with?? [facility] You had a followup appointment in sleep medicine on 3Please contact our office at [phone], option 2, and we will be happy to reschedule the appointment. Follow Up with??Bradford DUPREE , Louisa Farrar When:??Within 1 to 2 weeks Why: to ensure resolution of symptoms,??discuss management of asthma, iron??deficiency anemia Where: [address] [place] [address]- Discharge Medications KUSHAL LIN :2000 Visit Date:10/25/2024 Medications: Please continue your medications until treatment is completed or stopped by your provider. Medications not listed below should be discontinued. Discuss any questions related to medications with your provider. What How Much When Instructions Next Dose New Ferrous Sulfate (ferrous sulfate 325 mg oral enteric coated tablet) 325 Milligram Oral Every other day Refills: 2 If experiencing constipation try OTC laxative and stool softener ?? Pickup at [facility] 3 tomorrow morning??then every other day New Polyethylene Glycol 3350 (MiraLax oral powder for reconstitution) 17 gram Oral Daily dissolve in 4 to 8 oz of beverage ?? Pickup at [facility] 3 tomorrow at 8am New Senna (senna 187 mg oral tablet) 1 tab(s) Oral Twice a day as needed for Constipation Duration: 30 Days Pickup at [facility] 3 Twice a day as needed for Constipation Unchanged Albuterol (Ventolin 90 mcg Inhaler) 2 puff(s) Inhalation Every 4 hours as needed for Wheezing/Shortness of Breath Every 4 hours as needed for Wheezing/Shortness of Breath Unchanged Fluticasone Nasal (Flonase Allergy Relief 50 mcg/ inh nasal spray) 1 spray(s) Nares, Both Twice a day tonight at 8pm Unchanged Naproxen (naproxen 500 mg oral tablet) 1 tab(s) Oral Twice a day as needed for Cramps Twice a day as needed for Cramps Pharmacy Information [facility]: [address] [place], [place] [id number] [phone] ?? What How Much When Comments Stop Taking Doxycycline (doxycycline hyclate 100 mg oral capsule) 1 capsule Oral Twice a day Duration: 7 Days Stop Taking Stop Taking PredniSONE (predniSONE 10 mg oral tablet) 6 tab(s) Oral Daily for 2 days then 5 tabs daily for 2 days, 4 tabs daily for 2 days, 3 tabs daily for 2 days, 2 tabs daily for 2 days then 1 tab daily for 2 days. ?? Stop Taking Prescription Given During Visit Ferrous Sulfate (ferrous sulfate 325 mg oral enteric coated tablet) - 325 mg, By Mouth, Every otherday, # 30 capsule, 2 Refills, If experiencing constipation try OTC laxative and stool softener, [address] [address] [phone]?? Polyethylene Glycol 3350 (MiraLax oral powder for reconstitution) - 17 Gm, By Mouth, Daily, # 510 Gm, 0 Refills, dissolve in 4 to 8 oz of beverage, [facility] [address] [address] [phone]?? Senna (senna 187 mg oral tablet) - 1 tablet = 8.6 mg, By Mouth, 2 times a day, # 60 tablet, 0 Refills, [facility] [address] [address] [phone]?? Laboratory Results Below is a partial list of the most recent Laboratory test results done prior to this discharge. You may have had other tests and procedures not included in this list. Please discuss all test resultswith your provider. Est Creatinine Clearance - 78.07 mL/min (10/27/2024) B Type Natriuretic Peptide (NT-proBNP) (10/25/2024) ???Nt-Probnp - 2962 pg/mL Basic Metabolic Panel (10/27/2024) ???Sodium - 142 mmol/L???Potassium - 4.1 mmol/L???Chloride - 106 mmol/L???Bicarbonate Level - 24 mmol/L???Anion Gap - 12???Glucose Level - 95 mg/dL???BUN - 13 mg/dL???Creatinine-Blood - 0.76 mg/dL???Estimated GFR Creatinine - 112 ML/MIN/1.73 M2???Calcium - 8.6 mg/dL CBC (10/27/2024) ???WBC - 8.2 k/mm3???RBC - 5.12 m/mm3???Hgb - 11.2 Gm/dL???Hct - 38.7 %???MCV - 75.6 femtoliters???MCH - 21.9 pg???MCHC - 28.9 Gm/dL???Platelet Count - 278 k/mm3???RDW-SD - 47.1 femtoliters???MPV - 10.2 femtoliters???Nucleated RBC (Automated) - 0.0 #/100 WBC'S???Abs. NRBC - 0.0 k/mm3 CBC w/ Differential (10/26/2024) ???WBC - 9.1 k/mm3???RBC - 5.30 m/mm3???Hgb - 11.5 Gm/dL???Hct - 39.2 %???MCV - 74.0 femtoliters???MCH - 21.7 pg???MCHC - 29.3 Gm/dL???Platelet Count - 283 k/mm3???RDW-SD - 45.4 femtoliters???MPV - 10.2 femtoliters???Nucleated RBC (Automated) - 0.0 #/100 WBC'S???Abs. NRBC - 0.0 k/mm3???Abs. Neut - 7.6 k/mm3???Abs. Lymph - 0.7 k/mm3???Abs. [place] - 0.7 k/mm3???Abs. Eo - 0.0 k/mm3???Abs. Baso - 0.0 k/mm3???Neut % - 83.9 %???Lymph % - 7.6 %???[place] % - 8.1 %???Eos % - 0.0 %???Baso % - 0.1 %???Imm Gran - 0.3 %???Abs. Imm Gran - 0.0 k/mm3 Comprehensive Metabolic Panel (10/26/2024) ???Sodium - 140 mmol/L???Potassium - 3.9 mmol/L???Chloride - 105 mmol/L???Bicarbonate Level - 21 mmol/L???Anion Gap - 14???Glucose Level - 132 mg/dL???BUN - 12 mg/dL???Creatinine-Blood - 0.84 mg/dL???Estimated GFR Creatinine - 99 ML/MIN/1.73 M2???Calcium - 8.7 mg/dL???Protein, Total - 7.1 Gm/dL???Albumin - 3.9 Gm/dL???AG Ratio - 1.2???Alkaline Phosphatase - 66 units/L???AST (SGOT) - 19 units/L???ALT (SGPT) - 24 units/L???Bilirubin, Total - 0.4 mg/dL COVID-19, RSV, and Flu A/B, Rapid PCR (10/25/2024) ???Influenza A PCR - NEGATIVE???Influenza B PCR - NEGATIVE???RSV PCR - POSITIVE???COVID-19 PCR Specimen Source - NASAL???COVID-19 PCR Result - NEGATIVE Ferritin (10/26/2024) ???Ferritin Level - 29 ng/mL Folate Level (10/26/2024) ???Folic Acid Level - 9.1 ng/mL High??Sensitivity??Troponin T (10/25/2024) ???High Sensitivity Troponin (HSTnT) - 11 ng/L Hold Blue Top Tube (10/25/2024) ???Hold Blue Top - SPECIMEN DISCARDED AFTER 4 HOURS. INR (10/26/2024) ???INR - 1.1???Protime (PT) - 11.9 seconds Ionized Calcium (10/26/2024) ???Calcium, Ionized pH Corrected - 1.16 mmol/L Iron + Iron Binding Capacity (10/26/2024) ???Iron Level - 23 mcg/dL???Iron Binding Capacity, Unsaturated - 329 mcg/dL???Iron Binding Capacity, Estimated Total - 352 mcg/dL???% Iron Saturation - 7 % LDH (10/26/2024) ???LDH - 284 units/L Magnesium Level (10/27/2024) ???Magnesium - 2.0 mg/dL Phosphorus Level (10/26/2024) ???Phosphorus - 4.0 mg/dL Reticulocyte Ct (10/26/2024) ???Retic Count - 2.2 %???Retic Count Corrected - 1.9 %???Retic Production Index - 1.9 % TSH (10/26/2024) ???TSH - 0.94 uIU/mL Vitamin B12 Level (10/26/2024) ???Vitamin B12 Level - 329 pg/mL You will be contacted within 72 hours with your results. Allergies (NKA means No Known Allergies) NKA Problems Active Problems??(5) Coarctation?? Complex sleep apnea syndrome?? Obstructive sleep apnea hypopnea, severe?? Severe obesity?? VSD - Closure of ventricular septal defect?? Education Materials Below is the list of Educational Leaflet Providered with your Discharge Instructions. [employer] Patient Education - Diet, Low Salt 3gm?? [employer] Patient Education - Senna?? [employer] Patient Education - Fluticasone Nasal Neal?? [employer] Patient Education - Iron Supplements?? [employer] Patient Education - Understanding Asthma?? [employer] Patient Education - Iron-Deficiency Anemia (Adult)?? [employer] Patient Education - What Is Acute Bronchitis??? [employer] Patient Education - Acute Bronchitis?? [employer] Patient Education - Tracking Symptoms of Heart Failure?? [employer] Patient Education - Heart Failure: Making Changes to Your Diet?? [employer] Patient Education - Heart Failure: Warning Signs of a Flare-Up?? [employer] Patient Education - Discharge Instructions for Heart Failure?? [employer] Patient Education - Heart Failure?? [employer] Patient Education - Heart Failure: Know Your Baselines?? Web[employer] Ign[employer] Patient Education - Heart Failure Zones?? [employer] Ign[employer] Patient Education - RSV (Respiratory Syncytial Virus) Infection?? Valuables and Belongings I fully understand and agree that [facility] accepts no responsibility for all my personal property including clothing, toilet articles, radios, jewelry, dentures, hearing aids, rings, money, or any other property that is in my possession or is brought to me after admission. I understand certain valuables may be placed in a hospital safe for a short period of time. I understand that the hospital is not liable for loss or damage due to accident, fire, or other natural occurrence while said property is in the safe. I accept full responsibility for any personal property that I keep with me, and will not hold the hospital responsible in case of loss or disappearance. I acknowledge that i have been encouraged to send valuables and belongings home. ?? Date for Pt to Sign Valuables/Belongings: 10/25/24 17:59:00 ?? Other Discharge Information ? Pulmonary Rehab Status?? Pulmonary Rehab Discharge Status?? Respiratory Rate: 20 br/min ? Common Emergency Awareness Tips IS IT A STROKE? Act FAST and Check for these signs: FACE Does the face look uneven? ARM Does one arm drift down? SPEECH Does their speech sound strange? TIME Call at any sign of stroke ?? Heart Attack Signs Chest discomfort: Most heart attacks involve discomfort in the center of the chest and lasts more than a few minutes, or goes away and comes back. It can feel like uncomfortable pressure, squeezing, fullness or pain. Discomfort in upper body: Symptoms can include pain or discomfort in one or both arms, back, neck, jaw or stomach. Shortness of breath: With or without discomfort. Other signs: Breaking out in a cold sweat, nausea, or lightheaded. Remember, MINUTES DO MATTER. If you experience any of these heart attack warning signs, call to get immediate medical attention! ?? Smoking can increase your chances of developing chronic health problems and can cause harmful effects to other family members in your house. If you smoke, you are strongly encouraged to quit. Please call [facility] [employer] Link at [phone] or [phone] ([phone]) or log in to [email or web address] for referrals to smoking cessation programs. ?? 169 Su[facility] Crisis Lifeline is available 28/04 if you or someone you know needs to find a reason to keep living. By calling [phone] you'll be connected to a skilled, trained counselor at a crisis center in your area. INPATIENT DISCHARGE INSTRUCTIONS SIGNATURE PAGE KUSHAL LIN Location:[facility] Registration Date and Time:10/25/2024 16:01 EST Primary Care Physician: Louisa Felder MD, Attending Physician: Gurinder Valentine MD, KUSHAL MARIE, have received the above patient education materials/instructions and have verbalized understanding. If ambulance or transport services are being used I further acknowledge being given a choice of service. ?? If you need to contact me, please call me at this number: . Patient/Treatment Plant Operator Name: Patient/Treatment Plant Operator Signature: Relationship to Patient: Witness Name/Signature: Date: * Saud Moreau MD: SIGN, SIGN, PERFORM, SIGN, VERIFY Event Display: Patient Education Handout Authored Date: [id number] * Nesha Vargas RN: PERFORM Event Display: Patient Education Leaflets Authored Date: [id number] Heart Failure Zones ?? 154 HEART FAILURE ZONES EVERY DAY Weigh yourself on your scale when you return home from the hospital.?? Your weight pounds. ?? EVERY DAY: ??? Weigh yourself in the morning before breakfast, write it down and compare it to yesterday???s weight. ??? Take your medicine as prescribed. ??? Check for swelling in your feet, ankles, legs and stomach. ??? Eat low-salt food. ??? Balance activity and rest periods. Which Heart Failure Zone are you today? GREEN, YELLOW, or RED? GREEN ZONE ALL CLEAR - This zone is your goal Your symptoms are under control when: ??? No shortness of breath. ??? No weight gain of more than 2 pounds in one day (it may change 1 or2 pounds some days). ??? No swelling of your feet, ankles, legs or stomach. ??? No chest pain. YELLOW ZONE STOP & CALL CAUTION - This zone is a warning If you have one or more, of the following: ?? Call Nurse: ?? Call Doctor: ? Weight gain of more than 3 pounds in 2 days or 5 pounds or more in 1 week. ??? More shortness of breath than usual. ??? More swelling of your feet, ankles, legs, or stomach than usual. ??? Feeling more tired than usual (no energy). ??? A dry, hacking cough. ??? Feeling dizzy. ??? Feeling uneasy, you know something not right. ??? Harder to breathe when lying down (need to sleep sitting in a chair). RED ZONE EMERGENCY ??? Go to the emergency room or call 911 if you have any of the following: ??? Struggling to breathe: unrelieved shortness of breath while sitting still. ??? Chest pain. ??? Confusion or unable to think clearly. ? * Vargas RN, Nesha: PERFORM Event Display: Patient Education Leaflets Authored Date: [id number] Heart Failure Discharge Instructions for Heart Failure ?? 153 Discharge Instructions for Heart Failure The heart is a muscle that pumps oxygen-rich blood to all parts of the body. When you have heart failure, the heart is not able to pump as well as it should. Blood and fluid may back up into the lungs (congestive heart failure), and some parts of the body don ???t get enough oxygen-rich blood to work normally. These problems lead to the symptoms of heart failure. Heart failure can occur due to aninjury to the heart or from natural processes. You can control symptoms of heart failure with some lifestyle changes and by following your doctor's advice. Home care Activity Ask your healthcare provider about an exercise program. You can benefit from simple activities suchas walking or gardening. Exercising most days of the week can make you feel better. Don't be discouraged if your progress is slow at first. Rest as needed. Stop activity if you develop symptoms such as chest pain, lightheadedness, or significant shortness of breath. Find activities that you enjoy, such as brisk walking, dancing, swimming, or gardening. These will help you stay active and strengthen your heart. Diet Follow a heart healthy diet. And make sure to limit the salt (sodium) in your diet. Salt causes your body to hold water. This makes your heart work harder as there is more fluid for the heart to pump. Limit your salt by doing the following: ??? Limit canned, dried, packaged, and fast foods. ??? Don't add salt to your food. ??? Season foods with herbs instead of salt. ??? Watch how much liquids you drink. Drinking too much can make heartfailure worse. Talk with your health care provider about how much you should drink each day. ??? Limit the amount of alcohol you drink. It may harm your heart. Women should have no more than 1 drink a day and men should have no more than 2. ??? When you eat out, request that your meals have no added salt. Tobacco If you smoke, it's very important to quit. Smoking increases your chances of having a heart attack by harming the blood vessels that provide oxygen to your heart. This makes heart failure worse. Quitting smoking is the number one thing you can do to improve your health. Enroll in a stop-smoking program to improve your chances of success. Talk with your healthcare provider??about medicines or nicotine replacement therapy to help you quit smoking. Ask your healthcare provider about smoking cessation support groups. Medicine Take your medicines exactly as prescribed. Learn the names and purpose of each of your medicines. Keep an accurate medicine list and current dosages with you at all times. Don't skip doses. If you miss a dose of your medicine, take it as soon as you remember. If you miss a dose and??it's almost time for your next dose, just wait and take your next dose at the normal time. Don't take a double dose. If you are unsure, call your doctor's office. Make sure not to mix up your medicines or forget what you've taken the same day. Weight monitoring Weigh yourself every day. A sudden weight gain can mean your heart failure is getting worse. Weigh yourself at the same time of day and in the same kind of clothes. Ideally, weigh yourself first thing in the morning after you empty your bladder, but before you eat breakfast. Your healthcare provider will show you how to track your weight. He or she will also discuss with you when you should call if you have a sudden, unexpected increase in your weight. In general, your healthcare provider may ask you to report if your weight goes up by more than 2 pounds in 1 day,?? 5 pounds in 1 week, or whatever weight gain you were told by your doctor. This is asign that you are retaining more fluid than you should be. Clues to weight gain include checking your ankles for swelling, or noticing you are short of breath when you lie down. Follow-up care Make a follow-up appointment as directed. Depending on the type and severity of heart failure you have, you may need follow-up as early as 7 days from hospital discharge. Keep appointments for checkups and lab tests that are needed to check your medicines and condition. Recognize that your health and even survival depend on your following medical recommendations. Symptoms Heart failure can cause a variety of symptoms, including: ??? Shortness of breath ??? Trouble breathing at night, especially when you lie down ??? Swelling in the legs and feet or in the belly (abdomen) ??? Becoming easily fatigued ??? Irregular or rapid heartbeat ??? Weakness or lightheadedness ??? Swelling of the neck veins It is important to know what to do if symptoms get worse or if you develop signs of worsening heartfailure. ?? When to see your healthcare provider Call your doctor right away if you have any of these signs of worsening heart failure: ??? Sudden weight gain (more than 2 pounds in 1 day or 5??pounds in 1 week, or whatever weight gainyou were told to report by your doctor) ??? Trouble breathing not related to being active ??? New or increased swelling of your legs or ankles ??? Swelling or pain in your abdomen ??? Breathing trouble at night (waking up short of breath, needing more pillows to breathe) ??? Frequent coughing that doesn't go away ??? Feeling much more tired than usual Call 911 Call 911 right away if you have: ??? Severe shortness of breath, such that you can't catch your breath even while??resting ??? Severe chest pain that does not resolve with rest or nitroglycerin ??? [place], foamy mucus with cough and shortness of breath ??? A continuous rapid or irregular heartbeat ??? Passing out or fainting ??? Stroke symptoms such as sudden numbness or weakness on one side of your face, arm, or leg or sudden confusion, trouble speaking or vision changes ? Please refer to the Heart Failure Handbook for more information. ? * Nesha Vargas RN: PERFORM Event Display: Patient Education Leaflets Authored Date: [id number] Diet, Low Salt 3gm ?? 100 Low-Salt Diet (3 Grams/Day) This diet eliminates foods that are high in salt and restricts the amount of salt that you cook with. It is most often used for patients with high blood pressure, edema (fluid retention), kidney, liver, and heart disease. Table salt contains the mineral sodium. The body needs sodium to work normally. But too much sodiumcan make your health problems worse. Your health care provider is recommending a low-salt (also called low-sodium) diet for you. Your total daily allowance of salt (sodium) is 3 grams. This equals 3,000 milligrams (mg). It is less than 1 teaspoon of table salt. This means you can have only about 750 mg of sodium at each meal, and 375 mg of sodium for two snacks per day. When you cook, limit the salt you use. And if you can avoid using salt, even better. Do not add salt at the table. So, throw away the saltshaker! When shopping, read the package labels. Salt is often called ???sodium?? on the label. Choose foods that are salt-free, low salt, or very low salt. Note that foods with reduced salt or reduced sodium may not??lower your salt intake enough. ? Beverages Ok: Tea, coffee, carbonated beverages, juices Avoid: Flavored international coffees, electrolyte replacement drinks, sports beverages Bread and cereals Ok: Low sodium bread and rolls, cereals, cakes; low-salt crackers, matzo crackers Avoid: Salted crackers, pretzels, popcorn; iranian toast, pancakes, muffins Desserts Ok: Ice cream, frozen yogurt, juice bars, gelatin, cookies and pies, sugar, honey, jelly, hard candy Avoid: Most pies, cakes and cookies prepared or processed with salt, instant pudding Meats Ok: All fresh meat, fish, poultry, low-salt tuna, eggs, egg substitute Avoid: Smoked, pickled, brine-cured, or salted meats and fish. This??includes ely, chipped beef, corned beef, hot dogs, luncheon meats, ham, kosher meats, salt pork, sausage, canned tuna, salted codfish, smoked??salmon, bethea, sardines, or anchovies. Dairy Ok: Milk, chocolate milk, hot chocolate mix, ???low-salt?? cheeses, and yogurt Avoid: Processed cheese, cheese spreads, Roquefort, Camembert, and cottage cheese, buttermilk, instant breakfast drink Beans, potatoes, and pasta Ok: Dry beans, split peas, lentils, potatoes, rice, macaroni, pasta, spaghetti without added salt Avoid: Potato chips, tortilla chips, and similar products Soups Ok: Low-salt soups and broths made with allowed foods Avoid: Bouillon cubes, soups with smoked or salted meats, regular soup and broth Vegetables Ok: Most are okay; low-salt tomato and vegetable juices Avoid: Sauerkraut and other brine-soaked vegetables, pickles and other pickled vegetables, tomato juice, olives Seasoning and spices Ok: Most seasonings are okay. Good substitutes for salt include: fresh herb blends, hot sauce, lemon, garlic, zapata, vinegar, dry mustard, parsley, cilantro, horseradish, tomato paste, regular margarine, mayonnaise, butter, cream cheese, vegetable oil, cream, low-salt salad dressing and gravy Avoid: Regular ketchup, relishes, pickles, soy sauce, teriyaki sauce, Worcestershire sauce, BBQ sauce, tartar sauce, meat tenderizer, chili sauce, regular gravy, regular salad dressing ? Patient Care team information Care Team Personnel Name: Bradford DUPREE , Louisa Farrar Position: Reference Physician Member Role: PCP Address: [employer] [address] Telecom: Name: Yary Simms MD Position: [facility] Physician - Pediatrics Member Role: [employer] Consulting Physician Care Team Related Persons Name: SARAN LEO Name: RAVEN GIBSON Name: RAVEN ALONSO Insurance Providers Guarantor name: [employer] Health Plan Information #: 1 Payer: [employer] Member Number: [id number] Policy Number: NA Group Number: [facility] Health Plan Information #: 2 Payer: [employer] Member Number: [id number] Policy Number: NA Group Number: NA
== END 2024-11-25 13:02 | disposition home or self-care (01) ==
PROVIDERS: Visit Provider Internal Medicine
DX: D50.9 Iron deficiency anemia, unspecified (principal); Z86.19 Personal history of other infectious and parasitic diseases; Q24.9 Congenital malformation of heart, unspecified

== ENCOUNTER → 2024-11-25 12:34 | Outpatient (BNVA) | payer OTHER, SELFPAY | PROVIDERS: Visit Provider Internal Medicine | DX: D50.9 Iron deficiency anemia, unspecified (principal); Q24.9 Congenital malformation of heart, unspecified; Z86.19 Personal history of other infectious and parasitic diseases | CPT/HCPCS: 96127; 99212 ==

== ENCOUNTER 2025-09-05 09:36 | Outpatient (REF) | payer OTHER, SELFPAY ==
--- OUTSIDE RECORDS SUMMARY | 2025-09-05 13:37 | XMS_ITS | Data Portability ---
Author Organization [place] - [facility], Allergy Address [address] [address] Care Team Providers Care Sports Nutritionist Name Role Phone MICHELLE BAEZ Primary Care Provider Assessment Encounter Date Assessment Date Assessment LastModified by Organization Details LastModified Time 02/18/2024 02/18/2024 No evidence of recurrence of left nasal polyp. Patient tolerated nasal endoscopy well. Her current symptoms of nasal congestion likely correspond to allergy season. Discussed management with use of antihistamines when she is symptomatic. Alternative of allergy skin testing and immunotherapy was discussed, patient is not interested in moving forward in that direction at this time. She has a deviated septum to the right which is likely caused by her history of large nasal polyp displacing her septum. No intervention is needed on it at this time. She may follow-up as needed [email or web address] Not available 02/18/2024 09:36:52 04/05/2025 04/05/2025 24yo female presents for evaluation of ALEJANDRA. Oropharyngeal examination demonstrates Gamez category 4 and absent tonsils. Polysomnogram 11/2024 at [facility] demonstrates AHI of 95. We discussed patient is not a candidate for the inspire device and UPPP would only offer limited improvement. Patient would likely still have severe obstructive sleep apnea after UPPP procedure. Recommend another trial of CPAP and considering weight loss. She will follow-up in office as needed. Patient also evaluated by Dr. Driscoll. [email or web address] Not available 04/05/2025 12:25:42 Plan of Treatment Reminders Order Date Submit Date Provider Last Modified By Organization Details Last Modified Time Details Appointments None record ed. Lab None record ed. Referral None record ed. Procedures None record ed. Surgeries None record ed. Imaging None record ed. Medication Orders None record ed. Patient TargetsNo targets recorded. Patient InstructionsNo instructions recorded. Reason for Referral None Reported. Results Created Date Observation Date Name Description Value Unit Range Abnormal Flag Note LastModifiedBy Organization Detail LastModifiedTime 05/27/20 24 02/18/2022 imagi ng/di agnos tic resul t No observ ation record ed. [email or web address] Not Available 02:07:54 05/27/20 24 04/27/2023 imagi ng/di agnos tic resul t No observ ation record ed. [email or web address] Not Available 02:07:56 05/27/20 24 08/31/2021 imagi ng/di agnos tic resul t No observ ation record ed. [email or web address] Not Available 02:08:20 05/27/20 24 08/31/2021 imagi ng/di agnos tic resul t No observ ation record ed. [email or web address] Not Available 02:08:22 Result Notes None recorded. Problems Name Problem SNOMED Code Status Onset Date Resolution Date Notes Provider Name and Address Organization Details Recorded Time Polyp of nasal cavity 563119680 Active 2022 Polyp of nasal cavity; Note: Date Diagnosed: 03/19/2023 5:01 PM (J33.0) Not Available [facility] 4 02:21:49 Sleep apnea 41934947 Active 2022 Sleep apnea, unspecifie d; Note: Date Diagnosed: 03/19/2023 5:01 PM (G47.30) Not Available [facility] 4 02:21:58 Chronic maxillary sinusitis 94979306 Active 2022 Chronic maxillary sinusitis; Note: Date Diagnosed: 05/15/2023 4:35 PM (J32.0) Not Available [facility] 4 02:21:43 Allergic rhinitis 98254964 Active 2023 SURI DRISCOLL MD [address] [place] [address], [facility] [place], [address] , [facility] - [facility] 4 09:35:02 Deviated nasal septum 183678294 Active 2023 SURI DRISCOLL MD [address] [facility],[address], [place], [address] , [facility] - [facility] [place] 4 09:35:13 Obstructi ve sleep apnea syndrome 82086447 Active 2024 KIRA RODRIGUEZ PA-C [address] [facility], [place], [address] , [facility] - [facility] [place] 5 12:25:48 Problem Notes None recorded. Procedures Surgical History Date Name Laterality Status Provider Name and Address Organization Details Recorded Time 02/18/20 24 JMSNasal/Sinus Endoscopy completed SURI DRISCOLL MD [address] [facility], [place], [address], [facility] - [facility] [place] 02/18/2024 09:34:49 tonsillectomy and adenoidectomy completed Gracia Ferro [facility] [place] 02/18/2024 09:28:38 Nasal/sinus endoscopy surg completed Gracia Ferro [facility] [place] 02/18/2024 09:29:19 Imaging Results None recorded. Procedure Notes None recorded. Medical Equipment None Reported. Allergies No known drug allergies Medications Name Sig Start Date Stop Date Status Note LastModified by Organization Details LastModified Time prednisone 10 mg tablet TAKE 6 TABLETS BY MOUTH DAILY FOR 2 DAYS, THEN DECREASE DAILY DOSE BY 1 TAB EVERY 2 DAYS UNTIL DONE active Not Available Not Available No t Available doxycycline hyclate 100 mg capsule TAKE 1 CAPSULE BY MOUTH TWICE A DAY FOR 7 DAYS active Not Available Not Available No t Available senna 8.6 mg tablet TAKE 1 TABLET BY MOUTH TWO TIMES A DAY NEEDED FOR CONSTIPAT ON active Not Available Not Available No t Available azithromyci n 200 mg/5 mL oral suspension TAKE 10 ML (400 MG TOTAL) BY MOUTH DAILY FOR 5 DAYS . DISCARD REMAINING PORTION 02/17 completed Not Available Not Available Not Available polyethylen e glycol 3350 17 gram/dose oral powder MIX 17 GRAMS WITH 4 TO 8 OZ BEVERAGE AND DRINK ONCE DAILY active Not Available Not Available No t Available ferrous sulfate 325 mg (65 mg iron) tablet,alejandra yed release TAKE 1 TABLET BY MOUTH EVERY OTHER DAY. IF EXPERIENC ING CONSTIPAT ION TRY OTC LAXATIVE AND STOOL SOFTENER. active Not Available Not Available No t Available fluticasone propionate 50 mcg/actuati on nasal spray,suspe nsion TAKE 1 SPRAYS (INTRANAS AL) 2 TIMES PER DAY FOR 90 DAYS FOR PEDIATRIC S >2 Y/O active Not Available Not Available No t Available ipratropium bromide 21 mcg (0.03 %) nasal spray SPRAY 1 SPRAY IN EACH NOSTRIL AT BEDTIME active Not Available Not Available No t Available naproxen 500 mg tablet 3 tablets as needed by oral route. active Not Available Not Available No t Available amoxicillin 875 mg-potassiu m clavulanate 125 mg tablet TAKE 1 TABLET BY MOUTH TWICE A DAY FOR 7 DAYS active Not Available Not Available No t Available Ventolin HFA 90 mcg/actuati on aerosol inhaler TAKE 2 PUFFS BY MOUTH EVERY 4-6 HOURS (SHORTNES S OF BREATH OR WHEEZING) FOR 14 DAYS active Not Available Not Available No t Available ibuprofen active Not Available Not Shadia ilable Not Available Vitals Date Recorded Body height Body mass index (BMI) Body weight Provider Name and Address Organization Details Last Updated DateTime 02/18/2024 149.86 cm 51.7 kg/m2 845113.65 g Gracia Ferro [place] - [facility] 02/18/2024 09:18:25 Date Recorded Body height Body mass index (BMI) Body weight Provider Name and Address Organization Details Last Updated DateTime 04/05/2025 149.86 cm 55.3 kg/m2 109892.31 g Desiree Harevy [place] [facility] 04/05/2025 11:07:10 Social History Question Answer Notes LastModified by Organizat ion Details LastModified Time Tobacco Smoking Status Never Smoker Desiree negro [place] - [facility] 04/05/2025 11:08:25 How Many Years Have You Consumed Alcohol? 4 Information not available 04/05/2025 What Type Of Food Beverage Supervisor Do You Use? None Information not available 04/05/2025 How Many Alcoholic Drinks Do You Consume Per Day On Average? 1 Information not available 04/05/2025 Do You Have Any Pets? No Information not available 04/05/2025 Are You Passively Exposed To Smoke? Yes Information not available 04/05/2025 Are There Any Smokers In Your House? Yes Information not available 04/05/2025 Sex: Unknown Functional Status Question Answer Note LastModified by Organization Details LastModified Time How many times per week do you consume alcohol? Less than 1 time per week Inform ation not available 04/05/2025 Do you use any illicit or recreational drugs? No Information not available 04/05/2025 Do you or have you ever used any other forms of tobacco or nicotine? No Information not available 04/05/2025 What is your level of alcohol consumption? Occasional Information not available 04/05/2025 What type of noise exposure are you exposed to? noExposureToExcessiveNoise Infor mation not available 04/05/2025 Mental Status None recorded. Family History Nothing Reported. Medical History Condition Response Allergies/Hayfever N Heart Problems Y Anxiety Y Tonsil Infections N Emphysema N Migraines N Thyroid Problems N Glaucoma N Depression Y COPD N Developmental Delay N Nasal or Sinus Problems Y Anemia N Immune System Disorder N Anesthesia Complications N Heart Attack (TN) N Other Skin Condition N Diabetes N Rhinitis N Bleeding Disorder N Food Allergy N Arthritis N Hearing Loss N Hyperlipidemia N Cancer N Stroke N Dementia N Nasal polyps Y Asthma Y High Cholesterol N Sleep Disorder Y GERD/Reflux N Liver Disease N Headaches Y Fibromyalgia N Hypertension N Speech Delay N Kidney Disease N Gynecological HistoryNo gynecological history recorded. Obstetrics History GPAL:G 0 P 0 0 0 0 Past Encounters Encounter ID Performer Location Encounter Start Date Encounter Closed Date Diagnosis/Indication Diagnosis SNOMED-CT Code Diagnosis ICD10 Code Diagnosis IMO Codes Diagnosis Note [id number] SURI DRISCOLL MD [facility] [address] [address] 02/18/2024 08:57:39 02/18/2024 13:14:29 Chronic maxillary sinusitis 42032755 J32.0 Polyp of nasal cavity 73 6792946 J33.0 Allergic rhinitis 563654 04 J30.9 Deviated nasal septum 12 3222346 J34.2 [id number] KIRA RODRIGUEZ PA-C [facility] [address] [place] [address] 04/05/2025 11:00:27 04/05/2025 11:41:43 Deviated nasal septum 621032774 J34.2 Obstructiv e sleep apnea syndrome 94157752 G47.33 084222 Health Concerns Section Related Observation LastModified by Organization Detai ls LastModified Time None Recorded Concern Status LastModified by Organization Details LastModified Time None Recorded Advance Directives Directive None Recorded Payers Insurance Date Sequence Insurance Name Policy Number Policy Downey Covered Member ID Downey Member ID Guarantor Name 04/05/2025 1 [facility] (MEDICAID HMO) [place] Kimberly R Major [id number] Kimberly Major 04/05/2025 1 [facility] (MEDICAID REPLACEMENT - HMO) [place] Kimberly Major [id number] Kimberly Major Notes Date Note Type Note Provider Name and Address Organization Details Recorded Time 02/18/2024 text/html ROS as noted in the HPI 10/29/23 Left endoscopic max and ethmoid surgery for polyp [facility] epistaxisfeels some allergies in past few days, not using sprays or meds. can last most of summer in past SURI DRISCOLL MD [address] [place] [address],[address], [address], [facility] - [facility] 02/18/2024 09:38:45 04/05/2025 text/html ROS as noted in the HPI 24yo female presents for evaluation of ALEJANDRA. She was diagnosed years ago. Most recent polysomnogram demonstrated AHI of 95. Trialed CPAP twice, but unfortunately refractory to the machine. Endorse that she cannot tolerate fullface mask or nasal pillows. Endorses apneic episodes a couple times monthly. History of left-sided nasal polypectomy with Dr. Driscoll. History of childhood tonsillectomy. SURI DRISCOLL MD [address] [place] [address],[address], [address], [place] - [facility] 04/06/2025 09:39:25 OBGyn Episode No OBEpisode recorded.
[2025-09-05 13:41] LABS: Hematocrit 44.6 % (37.0-47.0); Hemoglobin 14.0 g/dl (12.0-16.0); Imm Gran Abs Auto 0.03 X10*3/uL (0.00-0.03); Imm Gran Pct Auto 0.4 % (0.0-0.4); Lymphocytes Absolute Auto 1.1 X10*3/uL (1.2-4.9); Mean Corpuscular HGB Conc 31.4 g/dl (31.0-35.0); Mean Corpuscular Hemoglobin 25.1 pg (27.0-33.0); Mean Corpuscular Volume 79.9 fL (80.0-98.0); NRBC Abs Auto 0.000 X10*3/uL (0.0-0.012); NRBC Pct Auto 0.0 /100WBC (0.0-0.2); Red Blood Count 5.58 X10*6/uL (4.20-5.50)
[2025-09-05 13:42] LABS: Platelet Count 264 X10*3/uL (160-400); White Blood Count 7.9 X10*3/uL (4.8-10.8)
[2025-09-05 14:25] LABS: Alanine Aminotransferase 32 U/L (0-31); Anion Gap 16 (12-20); Aspartate Amino Transferase 35 U/L (5-31); Blood Urea Nitrogen 9 mg/dL (9-16); Calcium 8.9 mg/dL (8.4-10.2); Carbon Dioxide 22 mmol/L (22-29); Chloride 107 mmol/L (96-108); Cholesterol 173 mg/dL (<200); Estimated Glomerular Filt Rate > 60; HDL Cholesterol 46 mg/dL (>40); Potassium 4.3 mmol/L (3.3-5.1); Sodium 141 mmol/L (135-145); Triglycerides 88 mg/dL (<150)
== END 2025-09-05 09:37 | disposition home or self-care (01) ==
LOC: HO.HMGCLDS 09:36
PROVIDERS: PCP Internal Medicine; Visit Provider Internal Medicine
DX: Z00.01 Encounter for general adult medical examination with abnormal findings (principal); G47.33 Obstructive sleep apnea (adult) (pediatric); D50.9 Iron deficiency anemia, unspecified; N94.6 Dysmenorrhea, unspecified; E66.01 Morbid (severe) obesity due to excess calories; Q24.9 Congenital malformation of heart, unspecified; I34.0 Nonrheumatic mitral (valve) insufficiency; F41.1 Generalized anxiety disorder; Z13.39 Encounter for screening examination for other mental health and behavioral disorders; Z23 Encounter for immunization
CPT/HCPCS: 36415; 80048; 80061; 82306; 84450; 84460; 85025; 90471; 90656; 96127; 99395

== ENCOUNTER 2025-09-05 09:36 | Outpatient (AMB) | payer OTHER, SELFPAY ==
[2025-09-05 09:48] VITALS: BP 134/100; PULSE 90; RESP 18; TEMP 36.9; O2SAT 98; BMI 55.9
--- NOTE | 2025-09-05 09:48 | MHC.PC.OV ---
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 Required: No Is last menstrual period known: Yes Last menstrual period: 08/28/25 Allergies No Known Allergies Allergy (Verified 09/05/25 10:09) Medication List - Last Reconciled 09/05/25 by Louisa Felder MD acetaminophen (Tylenol Extra Strength) 500 mg PO Q6H PRN albuterol sulfate 90 mcg/actuation (Ventolin HFA) inhalation naproxen 500 mg PO BID PRN Tobacco use date assessed: 09/05/25 Dental Screening Dental Screen Date: 09/05/25 Did you have a dental visit in the last 12 months?: Yes Did you have a dental problem in the last 6 months where you did not have access to dental care?: No Was dental information given to patient?: Patient has dentist HPI PE HPI Details 25-year-old lady with history of congenital heart disease, iron-deficiency anemia, generalized anxiety disorder, morbid obesity, here today for her physical exam. The patient's medication regimen includes Tylenol 500 mg as needed for headaches, naproxen for menstrual cramps, and a Ventolin inhaler as needed for asthma, which is not used daily. The patient does not take any vitamins. A review of blood work from July of the previous year showed no anemia. The patient reports having slightly heavy periods. Prior labs also showed normal electrolytes, kidney function, and blood sugar,LDL cholesterol of 101 mg/dL. Vitamin-D deficiency noted. The patient has a diagnosis of severe obstructive sleep apnea, confirmed by three sleep studies over the last 10 years, and is unable to tolerate CPAP therapy. A follow-up with an ENT in April of this year found no anatomical blockage, and weight loss was recommended. The actuarial consultant has noted a cardiac contraindication to using GLP-1 receptor agonists, and bariatric surgery has been mentioned as a possible option. Regarding health maintenance, the patient saw a dentist in July of this year, has not had an eye exam since college, and has had only one Pap smear in the past at a clinic that has since closed. The patient is up to date on the Tdap vaccine, has received four COVID-19 vaccines, and received a flu shot during today's visit. There has been discussion about genetic testing for Caal syndrome, but the patient has faced difficulties in scheduling an appointment. [facility] Medical History (Updated 09/05/25 @ 10:38 by Louisa Felder MD) ALEJANDRA (obstructive sleep apnea) Congenital heart disease Iron deficiency anemia Generalized anxiety disorder Easy fatigability Intermittent palpitations Morbid obesity Dysmenorrhea Nonrheumatic mitral valve regurgitation History of ventricular septal defect Surgical History History of heart surgery History of tonsillectomy Family History Other Mental health disorder Social History Housing: House Alcohol intake: never Patient Tobacco Use Status: Never used Tobacco e-Cigarette/Vaping Use: Never Used Second Hand Smoke Exposure: No service: No Current occupational status: employed Cognitive needs: No Hearing needs: No Vision needs: Yes (Glasses) Female Reproductive History Menstrual Age of Menarche: 11 Date of last menstrual period: 08/28/25 Questionnaire PHQ-9 Over the last 2 weeks, how often have you been bothered by any of the following problems? 1. Little interest or pleasure in doing things: several days 2. Feeling down, depressed, or hopeless: nearly every day 3. Trouble falling or staying asleep, or sleeping too much: several days 4. Feeling tired or having little energy: several days 5. Poor appetite or overeating: several days 6. Feeling bad about yourself - or that you are a failure or have let yourself or your family down: nearly every day 7. Trouble concentrating on things, such as reading the newspaper or watching television: several days 8. Moving or speaking so slowly that other people could have noticed. Or the opposite - being so fidgety or restless that you have been moving around a lot more than usual: not at all 9. Thoughts that you would be better off or of hurting yourself in some way: more than half the days Total score: 13 Source: Developed by Jil Dorman Kurt Kroenke and colleagues, with an educational luis from [employer]. Thrive Questionnaire Date Thrive assessed: 11/25/24 I am a: Patient What is your living situation today?: I have a steady place to live Within the past 12 months, did the food you bought not last and you didn't have the money to get more?: Never true Within the past 12 months, did you worry whether your food would run out before you got money to buy more?: Never true Do you have trouble paying for medicines?: No Do you have trouble getting transportation to medical appointments?: No Do you have trouble paying your heating and electricity bill?: I choose not to answer this question Do you have trouble taking care of your child, family member or friend?: I choose not to answer this question Do you have trouble with day-to-day activities such as bathing, preparing meals, shopping, managing finances, etc.?: No Are you currently unemployed and looking for a job?: Yes Are you interested in more education?: No Please select the resources that you would like help with: None Currently or been in a relationship where the following occur: No concerns reported THRIVE Score: 0 AUDIT C Alcohol Use Questionnaire (AUDIT-C) 1. How often do you have a drink containing alcohol?: Monthly or less Total Score: 1 CORBY-7 AMB Questionnaire CORBY-7 Date CORBY - 7 assessed: 11/25/24 Feeling nervous, anxious, or on edge: 1 = Several days Not being able to stop or control worryin = Several days Worrying too much about different things: 1 = Several days Trouble relaxin = Several days Being so restless that it is hard to sit still: 0 = Not at all Becoming easily annoyed or irritable: 2 = More than half the days Feeling afraid as if something awful might happen: 0 = Not at all Total CORBY-7 score (0-4 normal; 5-9 mild; 10-14 moderate; 15-21 severe): 6 Source: Developed by Jil Dorman Kurt Kroenke and colleagues, with an educational luis from [employer]. Physical exam (Primary Care) Vital Signs: Last Vital Signs Temp 98.4 F 09/05/25 09:48 Pulse 90 09/05/25 09:48 Resp 18 09/05/25 09:48 BP 130/90 H 09/05/25 10:05 Pulse Ox 98 09/05/25 09:48 Oxygen Delivery Method Room Air 09/05/25 09:48 BMI result Body Mass Index 55.9 Tobacco/Smoking Status: Tobacco use Status Tobacco use date assessed 09/05/25 09/05/25 09:50 Patient Tobacco Use Status Never used Tobacco 09/05/25 09:48 e-Cigarette/Vaping Use Never Used 09/05/25 09:48 PHQ-9: PHQ-9 Score PHQ-9: Total score 13 09/06/25 14:57 Thrive Assessment: Date of Thrive Assessment Date Thrive assessed 11/25/24 09/05/25 09:48 Currently or been in a relationship where the following occur: No concerns reported Advance Care Planning discussion: Completed/Scanned Date of discussion: 09/05/25 Who was present: Patient Forms completed: Health Care Proxy Time spent: 16-45 minutes Actual minutes spent: 2 Office Procedures Flu Questionnaire Does the patient have a severe egg allergy?: No Does the patient have severe life threatening allergies?: No Does the patient have a fever or illness today?: No Has the patient ever had Guillain-[place] Syndrome?: No Has the patient ever had any past reaction to a flu shot?: No Immunizations Fluarix [id number] (PF) 45 mcg (15 mcg x 3)/0.5 mL IM syringe Performing Provider: Louisa Felder MD Performing Location: [facility] [place] [facility] Administered by: Sobia Dang CMA on 09/05/25 10:04 Dose Route Admin Location Dispensed Lot Number Expiration Date [facility] [employer] 0.5 mL IM Left Deltoid 0.5 mL [id number] 04/04/26 [id number] TriplePulse VIS Given Date VIS Provided VIS Publication Date 09/05/25 Single Vaccine 24 Eligibility Eligibility Date Funding Source Not [facility] Eligible 09/05/25 Private Coding Level of Care Code Est Pt Prev Care [id number]([id number]) Diagnoses Nonrheumatic mitral valve regurgitation I34.0 Dysmenorrhea N94.6 Morbid obesity E66.01 Generalized anxiety disorder F41.1 Iron deficiency anemia, unspecified iron deficiency anemia type D50.9 Iron deficiency anemia type: unspecified iron deficiency Congenital heart disease Q24.9 ALEJANDRA (obstructive sleep apnea) G47.33 Advance directive discussed with patient Z71.89 Annual visit for general adult medical examination with abnormal findings Z00.01 Additional Codes Vital Signs *Quality* - Advance Care Planning discussion: Completed/Scanned ([id number]) Vital Signs *Quality* - Time spent: 16-45 minutes ([id number]) Assessment & Plan Assessment & Plan (1) Nonrheumatic mitral valve regurgitation: Comment: Sees Dr. Jesse Louis cardiology at [facility] Code(s): I34.0 - Nonrheumatic mitral (valve) insufficiency Category: Medical (2) Dysmenorrhea: Code(s): N94.6 - Dysmenorrhea, unspecified Category: Medical (3) Morbid obesity: Code(s): E66.01 - Morbid (severe) obesity due to excess calories Category: Medical (4) Generalized anxiety disorder: Code(s): F41.1 - Generalized anxiety disorder Category: Medical (5) Iron deficiency anemia: Code(s): D50.9 - Iron deficiency anemia, unspecified Category: Medical Qualifiers: Iron deficiency anemia type: unspecified iron deficiency Qualified Code(s): D50.9 - Iron deficiency anemia, unspecified (6) Congenital heart disease: Code(s): Q24.9 - Congenital malformation of heart, unspecified Category: Medical (7) ALEJANDRA (obstructive sleep apnea): Code(s): G47.33 - Obstructive sleep apnea (adult) (pediatric) Category: Medical Plan: Goes to [facility] sleep clinic, seen by Dr. Lois Rooney (8) Advance directive discussed with patient: Code(s): Z71.89 - Other specified counseling Plan: Initiated the conversation about Advanced Directives. Advanced Directives help patients prepare for current and future decisions about their medical treatment and place of care. Discussed with patient that it is a process where a patients current condition and prognosis are reviewed, their wishes for information regarding their illness are elicited, and likely medical dilemmas are presented and options discussed. Healthcare proxy form completed today. The form can be amended as needed, reviewed yearly and make changes as needed (9) Annual visit for general adult medical examination with abnormal findings: Code(s): Z00.01 - Encounter for general adult medical examination with abnormal findings Orders: Orders Basic Metabolic Panel Fasting 09/05/25 D50.9 - Iron deficiency anemia, unspecified, E66.01 - Morbid (severe) obesity due to excess calories, F41.1 - Generalized anxiety disorder, G47.33 - Obstructive sleep apnea (adult) (pediatric), I34.0 - Nonrheumatic mitral (valve) insufficiency, N94.6 - Dysmenorrhea, unspecified, Q24.9 - Congenital malformation of heart, unspecified Lipid Panel 09/05/25 D50.9 - Iron deficiency anemia, unspecified, E66.01 - Morbid (severe) obesity due to excess calories, F41.1 - Generalized anxiety disorder, G47.33 - Obstructive sleep apnea (adult) (pediatric), I34.0 - Nonrheumatic mitral (valve) insufficiency, N94.6 - Dysmenorrhea, unspecified, Q24.9 - Congenital malformation of heart, unspecified Vitamin D 25-OH Total 09/05/25 D50.9 - Iron deficiency anemia, unspecified, E66.01 - Morbid (severe) obesity due to excess calories, F41.1 - Generalized anxiety disorder, G47.33 - Obstructive sleep apnea (adult) (pediatric), I34.0 - Nonrheumatic mitral (valve) insufficiency, N94.6 - Dysmenorrhea, unspecified, Q24.9 - Congenital malformation of heart, unspecified Influenza [id number] Immunization 09/05/25 Z23 - Encounter for immunization Alanine Aminotransferase 09/05/25 D50.9 - Iron deficiency anemia, unspecified, E66.01 - Morbid (severe) obesity due to excess calories, F41.1 - Generalized anxiety disorder, G47.33 - Obstructive sleep apnea (adult) (pediatric), I34.0 - Nonrheumatic mitral (valve) insufficiency, N94.6 - Dysmenorrhea, unspecified, Q24.9 - Congenital malformation of heart, unspecified Aspartate Amino Transferase 09/05/25 D50.9 - Iron deficiency anemia, unspecified, E66.01 - Morbid (severe) obesity due to excess calories, F41.1 - Generalized anxiety disorder, G47.33 - Obstructive sleep apnea (adult) (pediatric), I34.0 - Nonrheumatic mitral (valve) insufficiency, N94.6 - Dysmenorrhea, unspecified, Q24.9 - Congenital malformation of heart, unspecified Complete Blood Count Auto Diff 09/05/25 D50.9 - Iron deficiency anemia, unspecified, E66.01 - Morbid (severe) obesity due to excess calories, F41.1 - Generalized anxiety disorder, G47.33 - Obstructive sleep apnea (adult) (pediatric), I34.0 - Nonrheumatic mitral (valve) insufficiency, N94.6 - Dysmenorrhea, unspecified, Q24.9 - Congenital malformation of heart, unspecified Medications: New nystatin Apply to areas under breasts once a day after shower 1 appl topical DAILY 60 grams 1RF Rash under bread
[2025-09-05 10:05] VITALS: BP 130/90
== END 2025-09-05 10:39 | disposition home or self-care (01) ==
LOC: HO.HMCC 09:37
PROVIDERS: PCP Internal Medicine; Visit Provider Internal Medicine
DX: Z23 Encounter for immunization (principal)